=== PATIENT | female | born 1985 | race Caucasian/White ===

== ENCOUNTER 2021-04-07 11:57 | Emergency (ER) | payer OTHER, SELFPAY ==
[2021-04-07 12:11] VITALS: BP 115/60; PULSE 96; RESP 16; TEMP 37.4; O2SAT 98
--- NOTE | 2021-04-07 12:32 | ED.URI ---
HPI - URI/Sore Throat General Chief Complaint: Upper Respiratory Infection Stated Complaint: flu like sx Time Seen by Provider: 04/07/21 12:32 Source: patient, RN notes reviewed and old records reviewed Mode of arrival: ambulatory Limitations: no limitations History of Present Illness HPI Narrative: 36-year-old female presents to the [facility] with complaints of flulike symptoms. Patient stated yesterday she had 104 fever, headache, ear pain, sore throat and generalized body aches. Reports nausea and diarrhea for 3 hours last night. Patient is not Covid or flu vaccinated Patient is just wanting to be tested for influenza. Related Data Home Medications Medication Instructions Recorded Confirmed albuterol 2 mcg INHALATION PRN PRN 04/07/21 04/07/21 Allergies Allergy/AdvReac Type Severity Reaction Status Date / Time No Known Allergies Allergy Verified 04/07/21 12:37 Review of Systems Review of Systems: All systems reviewed & are unremarkable except as noted in HPI and below Constitutional: Constitutional: Reports as per HPI, Reports chills and Reports fever(s) Eyes: Eyes: Reports no additional eye complaints ENT: Reports as per HPI, Reports nasal congestion and Reports sore throat Comments: Ear pain Cardiovascular: Cardiovascular: Reports no additional cardiovascular complaints, Denies chest pain and Denies radiating jaw, neck or arm pain Respiratory: Respiratory: Reports no additional respiratory complaints, Denies cough, Denies dyspnea and Denies wheezing Gastrointestinal: Gastrointestinal: Reports no additional gastrointestinal complaints Musculoskeletal: Musculoskeletal: Reports as per HPI and Reports myalgias Integumentary/Breasts: Skin/Breast: Reports system reviewed and no additional complaints, except as docu Neurologic: Reports as per HPI and Reports headache(s) Psychiatric: Psychiatric: Reports no additional psychiatric complaints Allergic/Immunologic: Allergic/Immunologic: Reports no additional allergic/immunologic complaints PMFSH Past Medical History Medical History Viral infection Comments At the time of my signature, I reviewed and agree with the nursing past medical, surgical, social, and family history. There is no relevant family history pertinent to the patient complaint. Exam Const: General: healthy appearing, no acute distress and alert Nutritional Appearance: well nourished and obese Orientation/consciousness: patient oriented x3 Limitations: no limitations HENMT: Head: normal to inspection Ears: external ears normal, TM's normal bilaterally and EAC's normal Mouth: Yes Normal oral and palatal mucosa present Throat: posterior oropharynx normal Eyes: Conjunctivae: conjunctivae normal Pupils: Equal, round and reactive pupils present Neck: Neck: normal visual inspection, no lymphadenopathy and no meningeal signs Chest: Chest palpation & inspection: normal inspection of the chest Resp: Effort & Inspection: normal respiratory effort and no use of accessory muscles Auscultation: clear to auscultation bilaterally, no rales, no rhonchi and no wheezes Cardio: Rate: regular rate Rhythm: regular rhythm Back/Spine/Pelvis: Back: no CVA tenderness Skin: General skin exam: normal color Rashes: no rashes Wounds: no wounds Neuro: General: patient oriented x3, moves all extremities, no meningeal signs and no focal motor deficits Speech: normal speech Gait exam (Neuro): Normal gait present Extrem: General: normal to inspection Psych: Appearance: grossly normal and well kempt Mental Status: mental status grossly normal Affect: normal affect Attitude: cooperative Thought content: Yes Normal thought content present Course Course Emergency Course: Discharge instructions reviewed with patient, as well as provided in writing per nursing staff. The instructions also include specific and strict return/GO TO THE ER as well as f/u inf
== END 2021-04-07 13:10 | disposition home or self-care (01) ==
PROVIDERS: Emergency Provider Nurse Practitioner
DX: U07.1 COVID-19 (principal); J45.909 Unspecified asthma, uncomplicated
CPT/HCPCS: 87804; 99203; G0463

== ENCOUNTER → 2021-04-09 01:37 | Outpatient (CLI) | payer MEDICAID, SELFPAY ==
[2021-04-09 20:33] LABS: SARS-CoV-2 RNA PCR Positive
== END ==
PROVIDERS: Visit Provider Nurse Practitioner
DX: U07.1 COVID-19 (principal); R50.9 Fever, unspecified
CPT/HCPCS: C9803; U0003; U0005

== ENCOUNTER 2023-02-22 10:30 | Emergency (ER) | payer MEDICAID, SELFPAY ==
--- NOTE | 2023-02-22 10:32 | ED.URI ---
HPI - URI/Sore Throat General Chief Complaint: Upper Respiratory Infection Stated Complaint: SOB Time Seen by Provider: 02/22/23 10:46 Source: patient, RN notes reviewed and old records reviewed Mode of arrival: ambulatory Limitations: no limitations History of Present Illness HPI Narrative: 38-year-old male presents to the [facility] with complaints of cough and shortness of breath. Patient is 3 months . Has a history of asthma Onset (ago): week(s) (3) Related Data Home Medications Medication Instructions Recorded Confirmed albuterol 90 mcg/actuation aerosol 2 mcg inhalation PRN PRN 04/07/21 02/22/23 inhaler difficulty breathing albuterol sulfate 2.5 mg/3 mL 2.5 mg inhalation DIRECTED 02/22/23 02/22/23 (0.083 %) solution for nebulization ondansetron HCl 4 mg tablet 4 mg PO DIRECTED PRN Dyspnea 02/22/23 02/22/23 Allergies Allergy/AdvReac Type Severity Reaction Status Date / Time No Known Allergies Allergy Verified 02/22/23 10:41 Review of Systems Review of Systems: All systems reviewed & are unremarkable except as noted in HPI and below Constitutional: Constitutional: Reports no additional constitutional complaints Eyes: Eyes: Reports no additional eye complaints ENT: Reports system reviewed and no additional complaints, except as documented Cardiovascular: Cardiovascular: Reports no additional cardiovascular complaints, Denies chest pain and Denies dyspnea Respiratory: Respiratory: Reports as per HPI, Denies chest congestion, Reports cough, Reports dyspnea and Reports wheezing Gastrointestinal: Gastrointestinal: Reports no additional gastrointestinal complaints, Denies abdominal pain, Denies nausea and Denies vomiting Musculoskeletal: Musculoskeletal: Reports no additional musculoskeletal complaints Integumentary/Breasts: Skin/Breast: Reports system reviewed and no additional complaints, except as docu Neurologic: Reports system reviewed and no additional complaints, except as documented Psychiatric: Psychiatric: Reports no additional psychiatric complaints Allergic/Immunologic: Allergic/Immunologic: Reports no additional allergic/immunologic complaints PMFSH Past Medical History Medical History (Updated 02/22/23 @ 11:00 by Cheyenne Price APRN) Asthma Viral infection Comments At the time of my signature, I reviewed and agree with the nursing past medical, surgical, social, and family history. There is no relevant family history pertinent to the patient complaint. Exam Const: General: cooperative, healthy appearing, comfortable, no acute distress, well developed, alert and well nourished Nutritional Appearance: well nourished Orientation/consciousness: patient oriented x3 Limitations: no limitations HENMT: Head: normal to inspection Ears: hearing grossly normal bilaterally, external ears normal, TM's normal bilaterally, EAC's normal, mastoids normal and no periauricular adenopathy Face/Nose/Sinus: Normal external nose present, Normal nares present, Normal nasal mucous membranes and turbinates present, normal facial exam and face symmetric Face and sinus: normal facial exam and face symmetric Mouth: Yes Normal oral and palatal mucosa present, Yes lip normal and Yes moist mucous membranes Throat: posterior oropharynx normal, tonsils normal, uvula midline and postnasal drainage Eyes: General: appearance normal, both eyes and all related structures Alignment and Position: alignment normal Periorbital: periorbital findings normal Pupils: Equal, round and reactive pupils present EOM: EOMs intact bilaterally Neck: Neck: normal visual inspection, full ROM, no lymphadenopathy and no meningeal signs Chest: Chest palpation & inspection: normal inspection of the chest Resp: Effort & Inspection: normal respiratory effort and able to speak in complete sentences Auscultation: clear to auscultation bilaterally, no crackles, no rales, no rhonchi and no wheezes Cardio: Rate: regular rat
[2023-02-22 10:43] VITALS: BP 134/75; PULSE 102; RESP 18; TEMP 36.8; O2SAT 98
== END 2023-02-22 11:00 | disposition home or self-care (01) ==
PROVIDERS: Emergency Provider Nurse Practitioner
DX: J40 Bronchitis, not specified as acute or chronic (principal); J45.909 Unspecified asthma, uncomplicated
CPT/HCPCS: 99203; G0463

== ENCOUNTER 2023-06-21 10:27 | Outpatient (RCR) | payer MEDICAID, SELFPAY ==
[2023-06-21 11:21] LABS: Hematocrit 35.6 % (37.0-47.0); Hemoglobin 11.8 g/dL (12.0-15.0)
[2023-06-21 11:55] LABS: HIV 1/2 Ab P24 Ag Result Negative (Negative)
[2023-06-23] MEDS: RHO(D) IMMUNE GLOBULIN 300 MCG/2 ML SYRINGE IM (10:23)
== END 2023-09-19 23:59 | disposition home or self-care (01) ==
LOC: ANHLAB 10:27
PROVIDERS: Visit Provider Obstetrics & Gynecology
DX: Z11.4 Encounter for screening for human immunodeficiency virus [HIV] (principal); Z29.13 Encounter for prophylactic Rho(D) immune globulin; O36.0130 Maternal care for anti-D [Rh] antibodies, third trimester, not applicable or unspecified; Z3A.00 Weeks of gestation of pregnancy not specified
CPT/HCPCS: 36415; 85014; 85018; 85461; 86703; 86850; 86900; 86901; 90384; 96372; G0432; J2790

== ENCOUNTER 2023-06-25 17:47 | Emergency (ER) | payer MEDICAID, SELFPAY ==
[2023-06-25] VITALS (7 sets, daily range): BP systolic 117–140; BP diastolic 75–85; PULSE 93–104; RESP 15–18; TEMP 36.3; O2SAT 97–100
--- NOTE | ~2023-06-25 | XR_ITS ---
EXAMINATION: XR chest 1V portable Exam Date/Time: 06/25/2023 19:35 CDT HISTORY: preeclampsia eval, 29 weeks, r/o pulm edema Comparison: None. RESULT: Lines, tubes, and devices: None. Lungs and pleura: Clear. Cardiomediastinal silhouette: Normal. Other: No acute osseous or upper abdominal finding. IMPRESSION: No acute cardiopulmonary process. Reviewed, dictated and finalized at location K.
--- NOTE | 2023-06-25 18:33 | ED.DIZZY ---
HPI - Dizziness General Chief Complaint: Dizziness Stated Complaint: 29 wks , dizzy x 2 days Time Seen by Provider: 06/25/23 18:32 Source: patient Mode of arrival: ambulatory Limitations: no limitations History of Present Illness HPI Narrative: Patient is a 38 y/o female who presents to the ED with c/o dizziness and vision changes. Patient is currently 29 weeks gestation[address] She sees Dr[address] Chappell. She reports over the last 2 days, she has been having dizziness/lightheadedness, intermittent blurry vision, nausea, headaches, SOB, discomfort in her right-sided abdomen, difficulty focusing, oliguria. She also reports having swelling in her legs over the last 1 week, increased swelling in her hands over the last 2 days. Denies fevers, shortness of breath, chest pain, slurred speech, focal weakness, vomiting, vaginal bleeding, hematuria. Patient reports a fairly unremarkable thus far. She denies history of hypertension with . She does report she recently had an elevated 1 hour glucose test and is scheduled to have 3hr GTT. Related Data Home Medications Medication Instructions Recorded Confirmed albuterol 90 mcg/actuation aerosol 2 mcg inhalation PRN PRN 04/07/21 02/22/23 inhaler difficulty breathing albuterol sulfate 2.5 mg/3 mL 2.5 mg inhalation DIRECTED 02/22/23 02/22/23 (0.083 %) solution for nebulization ondansetron HCl 4 mg tablet 4 mg PO DIRECTED PRN Dyspnea 02/22/23 02/22/23 Allergies Allergy/AdvReac Type Severity Reaction Status Date / Time No Known Allergies Allergy Verified 06/25/23 18:22 Review of Systems Review of Systems: CONSTITUTIONAL: Denies fever, chills, or sweats. ENT: Reports blurry vision. CARDIOVASCULAR: Denies chest pain. RESPIRATORY: See HPI GASTROINTESTINAL: See HPI. GENITOURINARY: See HPI. MUSCULOSKELETAL: Denies back pain, extremity pain, myalgia. NEUROLOGIC: See HPI. All systems reviewed & are unremarkable except as noted in HPI and below PMFSH Past Medical History Medical History Asthma Viral infection Exam Narrative: GENERAL: Mildly ill-appearing, obese with BMI of 32.3, non-toxic, in no acute distress. HEAD: Normocephalic, atraumatic. EYES: PERRL/EOMI, conjunctiva clear. No nystagmus. RESPIRATORY: Airway patent, respirations nonlabored. Clear to auscultation bilaterally, no rales, rhonchi, wheezing. No significant focal lung sounds. CARDIOVASCULAR: Borderline tachycardic with regular rhythm without murmurs, rubs, or gallops. ABDOMINAL: Soft, uterus gravid near diaphragm, mild discomfort throughout R sided abdomen, nondistended. Normoactive BS. MUSCULOSKELETAL: Moves all extremities. No gross deformities. Mild nonpitting edema throughout BLE, symmetric bilaterally. No calf tenderness. SKIN: Warm, dry, normal color. NEURO: A&O X3. Speech clear. Cranial nerves II-XII grossly intact. Steady gait. No ataxic movements. Sensation grossly intact. Strength 5/5 in upper and lower extremities bilaterally. No pronator drift. Equal extruding press adjuster strength bilaterally. PSYCHIATRIC: Appropriate mood and affect. Normal interaction. Course Vital Signs Vital signs: Vital Signs Temperature 97.3 F L 06/25/23 18:18 Pulse Rate 100 06/25/23 18:18 Respiratory Rate 18 06/25/23 18:18 Blood Pressure 133/85 06/25/23 18:18 Pulse Oximetry 100 06/25/23 18:18 Oxygen Delivery Room Air 06/25/23 18:18 Temperature 97.3 F L 06/25/23 18:18 Pulse Rate 96 06/25/23 20:26 Respiratory Rate 15 06/25/23 20:26 Blood Pressure 117/75 06/25/23 20:26 Pulse Oximetry 100 06/25/23 20:26 Oxygen Delivery Room Air 06/25/23 18:18 MDM - Dizziness MDM Narrative Medical decision making narrative: Patient currently 29 weeks gestation reporting multiple symptoms, headaches, blurry vision, dizziness, SOB, right-sided abdominal pain, lower extremity swelling, decreased urine output. Symptoms are
--- NOTE | 2023-06-25 18:34 | ECG_ITS ---
Measurements Intervals [place] Rate: 97 P: 50 DE: 143 QRS: 28 QRSD: 80 T: 23 QT: 321 QTc: 409 Interpretive Statements SINUS RHYTHM NORMAL ECG NO PREVIOUS ECG AVAILABLE FOR COMPARISON Electronically Signed On 06-25-2023 18:59:56 CDT by Mariano Marcelo D.O.
[2023-06-25 18:43] LABS: Glucose Point of Care 100 mg/dl (65-105)
[2023-06-25] MEDS: SODIUM CHLORIDE 0.9% IV 1,000 ML 999 ML IV CONT (19:00)
[2023-06-25] MEDS: MECLIZINE HCL 25 MG TABLET PO (19:01)
[2023-06-25 19:06] LABS: Basophils Percent Auto 0.2 % (0.2-1.2); Eosinophils Absolute Auto 0.2 K/mm3 (0-0.3); Eosinophils Percent Auto 1.7 % (0-4.4); Hematocrit 33.7 % (37.0-47.0); Hemoglobin 11.3 g/dL (12.0-15.0); Immature Granulocyte Absolute 0.09 K/mm3 (0.00-0.031); Immature Granulocyte Percent A 0.8 % (0-0.5); Lymphocytes Absolute Auto 2.17 K/mm3 (0.9-3.2); Lymphocytes Percent Auto 19.5 % (18.3-44.2); Mean Corpuscular HGB Conc 33.5 g/dl (32-36); Mean Corpuscular Hemoglobin 28.8 pg (26-34); Mean Platelet Volume 9.6 fl (7.4-10.4); Monocytes Absolute Auto 0.8 K/mm3 (0.1-0.6); Monocytes Percent Auto 7.1 % (2.6-8.5); Neutrophils Absolute Auto 7.9 K/mm3 (1.3-6.7); Neutrophils Percent Auto 70.7 % (45.5-73.1); Platelet Count Result 227 k/mm3 (150-375); Red Blood Count 3.92 M/mm3 (4.2-5.4); Red Cell Distribution Width 13.8 % (11.5-14.5); White Blood Count 11.1 K/mm3 (4.5-10.0)
--- NOTE | 2023-06-25 19:18 | PC.NURSE ---
this rn assumed care of patient. this rn took patient report from MARIAM Zamarripa.
[2023-06-25 19:20] LABS: Prothrombin Time 13.1 Seconds (11.1-14.7)
[2023-06-25 19:22] LABS: Lactate Dehydrogenase 121 U/L (120-246); Lipase 130 U/L (23-300)
[2023-06-25 19:24] LABS: Fibrinogen 510 mg/dl (215-510)
[2023-06-25 19:25] LABS: Alanine Aminotransferase 19 U/L (6-35); Albumin Level 3.8 g/dL (3.5-5.1); Alkaline Phosphatase 81 U/L (38-126); Anion Gap 5 mmol/L (8-16); Aspartate Amino Transferase 24 U/L (14-36); Bilirubin,Total 0.5 mg/dL (0.2-1.3); Blood Urea Nitrogen 5 mg/dL (7-17); Calcium 9.6 mg/dL (8.4-10.2); Carbon Dioxide 23 mmol/L (22-30); Chloride 107 mmol/L (98-107); Estimated CRCL calculation 143 ml/min; Estimated Glomerular Filt Rate > 60; Glucose 89 mg/dL (65-110); Magnesium 1.9 mg/dL (1.6-2.3); Potassium 3.9 mmol/L (3.4-5.0); Sodium 135 mmol/L (137-145)
[2023-06-25 19:37] LABS: Total Protein Urine Random 12 mg/dL
[2023-06-25] MEDS: ACETAMINOPHEN 500 MG TABLET 1000 MG PO (19:56)
[2023-06-25 20:08] LABS: Appearance Urine Cloudy (Clear); Bacteria Urine Rare /hpf; Bilirubin Urine Negative (Negative); Blood Urine Negative (Negative); Color Urine Yellow (Yellow); Glucose Urine UA Negative (Negative); Ketones Urine Negative (Negative); Leukocyte Esterase Ur Negative LEU/UL (Negative); Nitrate Urine Negative (Negative); Non Pathogenic Casts 0-2; Protein Urine Negative (Negative); RBC Urine 0-2 /hpf (0-2); Specific Grav Ur 1.013 (1.001-1.035); Squamous Epithelial Cell Urine None Seen /hpf (Few); WBC Urine 0-5 /hpf (0-3)
[2023-06-25 20:11] LABS: Add Urine Microscopic? YES
== END 2023-06-25 21:11 | disposition home or self-care (01) ==
PROVIDERS: Emergency Provider Physician Assistant
DX: O26.892 Other specified pregnancy related conditions, second trimester (principal); R42 Dizziness and giddiness; R51.9 Headache, unspecified; O99.512 Diseases of the respiratory system complicating pregnancy, second trimester; J45.909 Unspecified asthma, uncomplicated; Z3A.29 29 weeks gestation of pregnancy
CPT/HCPCS: 36415; 71045; 80053; 81050; 82948; 83615; 83690; 83735; 84156; 85025; 85384; 85610; 85730; 93005; 96360; 96361; 99283; A9270; J7030

== ENCOUNTER 2023-07-10 09:35 | Emergency (ER) | payer MEDICAID, SELFPAY ==
--- NOTE | 2023-07-10 09:43 | ED.EYEPROB ---
HPI - Eye Problem General Chief complaint: Eye Problems Stated complaint: Left Eye Irritation/Sinus Time Seen by Provider: 07/10/23 09:53 Source: patient and RN notes reviewed Mode of arrival: ambulatory Limitations: no limitations History of Present Illness HPI Narrative: 38-year-old female who is 31 weeks presents with concern for left eye redness, irritation, copious green discharge that started last night. Reports she woke up with her eye crusted shut needed a washcloth to open it. Reports she has also had more than 1 week history of sinus congestion, pain, pressure, drainage. MD chief complaint: eye redness Related Data Home Medications Medication Instructions Recorded Confirmed albuterol 90 mcg/actuation aerosol 2 mcg inhalation PRN PRN 04/07/21 07/10/23 inhaler difficulty breathing albuterol sulfate 2.5 mg/3 mL 2.5 mg inhalation DIRECTED 02/22/23 07/10/23 (0.083 %) solution for nebulization ondansetron HCl 4 mg tablet 4 mg PO DIRECTED PRN Dyspnea 02/22/23 07/10/23 Allergies Allergy/AdvReac Type Severity Reaction Status Date / Time No Known Allergies Allergy Verified 07/10/23 09:45 Review of Systems Review of Systems: CONSTITUTIONAL: Denies malaise, chills, sweats, or fever. EYES: Denies visual changes. Reports left eye redness, irritation, green discharge. ENT: Reports rhinorrhea, congestion, sinus pain. Denies otalgia or sore throat. SKIN: Denies rash or itching. NEUROLOGIC: Denies numbness, weakness, or headache. PSYCHIATRIC: Denies anxiety or depression. All systems reviewed & are unremarkable except as noted in HPI and below PMFSH Past Medical History Medical History Asthma Viral infection Comments At time of signature, agree with nursing past medical, surgical, social and family history. There is no relevant family history pertinent to the presenting complaint Exam Narrative: GENERAL: Well-appearing, well-nourished, and in no acute distress. HEAD: Normocephalic, atraumatic. EYES: PERRLA, sclera clear, and EOMI. No nystagmus. Left sclera and conjunctivae injected with green nasal discharge. Left Upper and lower eyelid mildly edematous, right unremarkable unremarkable, no periorbital edema noted ENT: Nares clear, turbinates erythematous, sinus tenderness. Mucous membranes moist. TM pearly wilson with sharp light reflex bilaterally; no tragal tenderness. NECK: Supple. CHEST: No respiratory distress. Speaks in full sentences. HEART: Regular rate and rhythm. SKIN: Warm, dry, no visible rash. NEURO: Alert and oriented x3. PSYCH: Normal mood and affect Course Course Emergency Course: Patient is aware of diagnosis, understands and agrees to treatment plan. Anticipatory guidance given. Patient agrees to follow-up as directed and is aware of reasons to seek care at the emergency department. Portions of this record may have been created with voice recognition software Level of Care: Express Care Visit Vital Signs Vital signs: Reviewed. MDM - Eye Problem MDM Narrative Medical decision making narrative: Consideration of the following conditions may be warranted for the presenting problem, they are not final diagnoses: Bacterial conjunctivitis, allergic conjunctivitis, viral conjunctivitis, foreign body, blepharitis, chalazion, hordeolum, corneal abrasion, preseptal cellulitis, orbital cellulitis. No evidence of proptosis, ophthalmoplegia, vision loss, pain with eye movement. Exam findings show no acute concerns or changes; patient is non-toxic appearing and is in no distress. Patient is appropriate for outpatient treatment and follow-up. Critical Care Time Critical Care Time Critical Care Time: No Discharge Plan Discharge Clinical Impression: Bacterial conjunctivitis, Acute bacterial sinusitis Patient Disposition: Home, Self-Care Condition: Stable Instructions: Antibiotic Form, Sinusitis
[2023-07-10 09:46] VITALS: BP 106/67; PULSE 101; RESP 16; TEMP 36.4; O2SAT 98
[2023-07-10 09:47] VITALS: BP 106/67; PULSE 101; RESP 16; TEMP 36.4; O2SAT 98
== END 2023-07-10 10:05 | disposition home or self-care (01) ==
PROVIDERS: Emergency Provider Nurse Practitioner; PCP Obstetrics & Gynecology
DX: O99.891 Other specified diseases and conditions complicating pregnancy (principal); H10.9 Unspecified conjunctivitis; O99.513 Diseases of the respiratory system complicating pregnancy, third trimester; J01.90 Acute sinusitis, unspecified; Z3A.31 31 weeks gestation of pregnancy; J45.909 Unspecified asthma, uncomplicated
CPT/HCPCS: 99213; G0463

== ENCOUNTER 2023-08-10 21:07 | Observation (INO) | payer MEDICAID, SELFPAY ==
[2023-08-10] VITALS (12 sets, daily range): BP systolic 120–142; BP diastolic 69–88; PULSE 88–95; TEMP 36.9; BMI 34.9
--- NOTE | 2023-08-10 22:03 | OBADM ---
This patient, Lorenza Ballard, admitted to the OB room OB Post 117 for observation. Patient/family oriented to hospital policies and general routines including ID bracelet, bed and alarms, visiting hours, pain management, procedures, bathroom and other care routines, personal items, smoking policy, room service/diet, and visiting hours. Patient/Family are encouraged to report perceived risks to care and to ask questions if they do not understand what they are told or what they should do.
[2023-08-10 22:05] LABS: Basophils Percent Auto 0.2 % (0.2-1.2); Eosinophils Absolute Auto 0.2 K/mm3 (0-0.3); Eosinophils Percent Auto 1.5 % (0-4.4); Hematocrit 33.4 % (37.0-47.0); Hemoglobin 11.3 g/dL (12.0-15.0); Immature Granulocyte Absolute 0.05 K/mm3 (0.00-0.031); Immature Granulocyte Percent A 0.5 % (0-0.5); Lymphocytes Absolute Auto 1.96 K/mm3 (0.9-3.2); Lymphocytes Percent Auto 19.2 % (18.3-44.2); Mean Corpuscular HGB Conc 33.8 g/dl (32-36); Mean Corpuscular Hemoglobin 29.6 pg (26-34); Mean Corpuscular Volume 87.4 fl (80-100); Mean Platelet Volume 9.6 fl (7.4-10.4); Monocytes Absolute Auto 0.6 K/mm3 (0.1-0.6); Monocytes Percent Auto 6.2 % (2.6-8.5); Neutrophils Absolute Auto 7.4 K/mm3 (1.3-6.7); Neutrophils Percent Auto 72.4 % (45.5-73.1); Platelet Count Result 216 k/mm3 (150-375); Red Blood Count 3.82 M/mm3 (4.2-5.4); Red Cell Distribution Width 14.7 % (11.5-14.5); White Blood Count 10.2 K/mm3 (4.5-10.0)
[2023-08-10 22:07] LABS: Appearance Urine Clear (Clear); Bilirubin Urine Negative (Negative); Blood Urine Negative (Negative); Color Urine Yellow (Yellow); Glucose Urine UA Negative (Negative); Ketones Urine Negative (Negative); Leukocyte Esterase Ur Negative LEU/UL (Negative); Nitrate Urine Negative (Negative); Protein Urine Negative (Negative); Specific Grav Ur 1.008 (1.001-1.035)
[2023-08-10 22:12] LABS: Total Protein Urine Random 16 mg/dL
[2023-08-10 22:13] LABS: Add Urine Microscopic? NO
[2023-08-10 22:17] LABS: Alanine Aminotransferase 17 U/L (6-35); Albumin Level 3.6 g/dL (3.5-5.1); Alkaline Phosphatase 127 U/L (38-126); Anion Gap 6 mmol/L (4-12); Aspartate Amino Transferase 25 U/L (14-36); Bilirubin,Total 0.5 mg/dL (0.2-1.3); Blood Urea Nitrogen 3 mg/dL (7-17); Calcium 9.5 mg/dL (8.4-10.2); Carbon Dioxide 21 mmol/L (22-30); Chloride 108 mmol/L (98-107); Estimated CRCL calculation 122 ml/min; Estimated Glomerular Filt Rate > 60; Glucose 104 mg/dL (65-110); Potassium 3.7 mmol/L (3.4-5.0); Sodium 135 mmol/L (137-145); Uric Acid 3.6 mg/dL (2.5-7.5)
[2023-08-10] MEDS: ACETAMINOPHEN 500 MG TABLET 1000 MG PO (22:38)
--- NOTE | 2023-08-11 13:44 | P.PNOB_ITS ---
OB - Triage/Final Diagnosis Visit Information Date of evaluation: 08/10/23 Reason for evaluation: other (elevated blood pressure) Comments/Additional reasons for admission: I have assessed the risk for this patient, Lorenza Ballard, and determined that she would benefit from observation care. Evaluation Laboratory results: Laboratory Tests 08/10/23 08/10/23 21:50 21:51 WBC 10.2 H RBC 3.82 L Hgb 11.3 L Hct 33.4 L MCV 87.4 MCH 29.6 MCHC 33.8 RDW 14.7 H Plt Count 216 MPV 9.6 Immature Gran % (Auto) 0.5 Neut % (Auto) 72.4 Lymph % (Auto) 19.2 [place] % (Auto) 6.2 Eos % (Auto) 1.5 Baso % (Auto) 0.2 Lymph # (Auto) 1.96 [place] # (Auto) 0.6 Eos # (Auto) 0.2 Baso # (Auto) 0.0 Abs Immat Gran (auto) 0.05 H Absolute Neuts (auto) 7.4 H Absolute Nucleated RBC 0.000 Nucleated RBC % 0.0 Sodium 135 L Potassium 3.7 Chloride 108 H Carbon Dioxide 21 L Anion Gap 6 BUN 3 L Creatinine 0.50 L Estim Creat Clear Calc 122 Estimated GFR > 60 Glucose 104 Uric Acid 3.6 Calcium 9.5 Total Bilirubin 0.5 AST 25 ALT 17 Alkaline Phosphatase 127 H Total Protein 6.0 L Albumin 3.6 Urine Color Yellow Urine Appearance Clear Urine pH 8.0 Ur Specific [place] 1.008 Urine Protein Negative Urine Glucose (UA) Negative Urine Ketones Negative Ur Blood (Man) Negative Urine Nitrate Negative Urine Bilirubin Negative Urine Urobilinogen 1.0 Leukocyte Esterase Rfl Negative U Random Total Protein 16 Urine Creatinine 32.0 Protein/Creat Ratio 2 0.50 H Vital signs: Vital Signs - 24 hr 08/10/23 21:24 08/10/23 21:31 08/10/23 21:45 Temperature Pulse Rate 94 91 94 Blood Pressure 142/88 H 139/82 135/85 Oxygen Delivery 08/10/23 22:00 08/10/23 22:15 08/10/23 22:30 Temperature Pulse Rate 89 95 89 Blood Pressure 134/82 132/77 134/85 Oxygen Delivery 08/10/23 22:45 08/10/23 23:00 08/10/23 23:15 Temperature Pulse Rate 89 92 90 Blood Pressure 133/80 132/69 128/79 Oxygen Delivery 08/10/23 23:30 08/10/23 23:45 08/10/23 22:03 Temperature Pulse Rate 89 88 Blood Pressure 120/84 120/73 Oxygen Delivery Room Air 08/10/23 21:23 Temperature 36.9 C Pulse Rate Blood Pressure Oxygen Delivery
== END 2023-08-10 23:53 ==
PROVIDERS: Advanced Practice Midwife; Admitting Provider Obstetrics & Gynecology; Visit Provider Obstetrics & Gynecology
DX: O26.899 Other specified pregnancy related conditions, unspecified trimester (principal); R03.0 Elevated blood-pressure reading, without diagnosis of hypertension
CPT/HCPCS: 36415; 80053; 81003; 82570; 84156; 84550; 85025; A9270; G0378; G0379

== ENCOUNTER 2023-08-12 10:48 | Outpatient (RCR) | payer MEDICAID, SELFPAY ==
--- NOTE | 2023-08-12 11:43 | OPREHPOC ---
Outpatient Therapy Plan of Care This is a Multidisciplinary Plan of Care that may contain components documented by all disciplines (PT, OT, and ST.) PT Problem 1 PT Problem #1 Knowledge Deficit PT Goal 1 Goal 1. Patient will perform independent HEP 2. Patient will don/doff support belt independently Target Visit 2 PT Problem 2 PT Problem #2 Pain PT Goal 1 Goal 1. Patient will report pain no higher than 4/10 with ADLs Target Visit 4 PT Problem 3 PT Problem #3 Impaired Functional ADLs PT Goal 1 Goal 1. Patient will be able to don/doff pants independently Target Visit 4
--- NOTE | 2023-08-12 11:43 | PTOPEVAL1 ---
Assessment and note entered by Karma George DPT Evaluation Information Assessment Status Evaluation Subjective Information Pt reports a lot of anterior pelvic pain and difficulty lifting her legs up like while laying down. Also notices pain with walking after sitting for awhile. Highest 8/10 and lowest 0/10. Some numbness in her left leg and getting swelling in both, L is worse. Pt is 36 weeks . Pain started about 2 months ago and worsening. Not able to do her normal cooking or cleaning and gets assistance to don/doff pants. Assistance to get out of bed as well. 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 Pt has been 2 other times, last 12 years ago. Both vaginal deliveries. Also reports current pain with intercourse. Reported Pain Level Pain Score 4: Self Report Assessment PT Clinical Summary The patient is presenting to skilled therapy at 36 weeks with anterior pelvic pain. She presents with decreased hip strength and pain with palpation of pubic symphysis which are contributing to her difficulty with most activities including dressing. She will highly benefit from therapy to reduce pain and improve function as her progresses. Plan of Care Interventions Gait Training,Hot Pack/Cold Pack,Manual Therapy, Neuro Re-education,Patient/Caregiver Education, Therapeutic Activities,Therapeutic Exercise PT Services Indicated Yes Treatment Frequency and 1 time a week for 4 visits Duration These treatments will address the objective and functional deficits as defined above. The patient will be advanced safely and appropriately in order for the patient to progress towards his/her prior level of function. Additional exercises will be introduced and as well as a comprehensive home exercise program upon discharge, if needed, ?to ensure carryover of functional gains achieved in the clinic. This treatment plan has been reviewed and agreement upon by the patient.
--- NOTE | 2023-08-18 15:31 | PCPTNOTE ---
Patient did not show up for appointment on 08/18/23.
--- NOTE | 2023-09-08 13:29 | PTOPDC ---
Assessment and note entered by Karma George DPT Evaluation Information Assessment Status Discharge - Pt Not Present Subjective Information - Assessment PT Clinical Summary The patient has not been seen in therapy since 08/11 and has likely delivered her baby. She will be discharged this date. Plan of Care PT Services Indicated No
== END 2023-09-08 14:59 | disposition home or self-care (01) ==
LOC: ANHPT 10:48
PROVIDERS: Visit Provider Obstetrics & Gynecology
DX: R10.2 Pelvic and perineal pain (principal)
CPT/HCPCS: 97110; 97140; 97161

== ENCOUNTER 2023-08-17 16:33 | Inpatient (IN) | payer MEDICAID, SELFPAY ==
[2023-08-17] VITALS (20 sets, daily range): BP systolic 125–166; BP diastolic 73–97; PULSE 88–112; TEMP 36.4; BMI 34.9
--- NOTE | 2023-08-17 17:38 | LDADM ---
This patient, Lorenza Ballard, was admitted to Labor/Delivery/Recovery 104 on 08/17/23 at 16:33. Plans for labor, pain management and were discussed with patient. Patient/family oriented to hospital policies and general routines including ID bracelet, bed and alarms, visiting hours, pain management, procedures, bathroom and other care routines, personal items, smoking policy, room service/diet and guest tray routines, infant security routines, and visiting hours. Patient/Family are encouraged to report perceived risks to care and to ask questions if they do not understand what they are told or what they should do. See OBIX for further documentation.
[2023-08-17 17:39] LABS: Basophils Percent Auto 0.1 % (0.2-1.2); Eosinophils Absolute Auto 0.1 K/mm3 (0-0.3); Eosinophils Percent Auto 0.6 % (0-4.4); Hematocrit 36.7 % (37.0-47.0); Hemoglobin 12.5 g/dL (12.0-15.0); Immature Granulocyte Absolute 0.06 K/mm3 (0.00-0.031); Immature Granulocyte Percent A 0.5 % (0-0.5); Lymphocytes Absolute Auto 2.07 K/mm3 (0.9-3.2); Lymphocytes Percent Auto 16.8 % (18.3-44.2); Mean Corpuscular HGB Conc 34.1 g/dl (32-36); Mean Corpuscular Hemoglobin 29.8 pg (26-34); Mean Corpuscular Volume 87.4 fl (80-100); Monocytes Absolute Auto 0.8 K/mm3 (0.1-0.6); Monocytes Percent Auto 6.1 % (2.6-8.5); Neutrophils Absolute Auto 9.3 K/mm3 (1.3-6.7); Neutrophils Percent Auto 75.9 % (45.5-73.1); Platelet Count Result 239 k/mm3 (150-375); Red Cell Distribution Width 14.7 % (11.5-14.5); White Blood Count 12.3 K/mm3 (4.5-10.0)
--- NOTE | 2023-08-17 17:47 | WPDOBADMIT ---
Obstetrics - Admit Note Admission Note: record reviewed. No pertinent additions to the history and/or any subsequent changes in the physical findings that are not consistent with the expected course of the were found. Additions to the history and/or subsequent changes in the physical findings follow. IOL for GHTN, co-managing with Dr. Perez, labs pending, has mild mckenna, bp's not currently severe range, continue to monitor. previous hx hemorrhage
[2023-08-17 17:48] LABS: Alanine Aminotransferase 22 U/L (6-35); Albumin Level 4.1 g/dL (3.5-5.1); Alkaline Phosphatase 153 U/L (38-126); Anion Gap 11 mmol/L (4-12); Aspartate Amino Transferase 25 U/L (14-36); Bilirubin,Total 0.6 mg/dL (0.2-1.3); Blood Urea Nitrogen 7 mg/dL (7-17); Calcium 10.1 mg/dL (8.4-10.2); Carbon Dioxide 17 mmol/L (22-30); Chloride 107 mmol/L (98-107); Estimated CRCL calculation 149 ml/min; Estimated Glomerular Filt Rate > 60; Glucose 105 mg/dL (65-110); Potassium 3.6 mmol/L (3.4-5.0); Sodium 135 mmol/L (137-145); Uric Acid 3.9 mg/dL (2.5-7.5)
[2023-08-17] MEDS: miSOPROStol 25 MCG TABLET 50 MCG BY MOUTH ×2 (17:50→21:55)
[2023-08-17 18:21] LABS: Creatinine Urine 132.4 mg/dL
[2023-08-17 18:24] LABS: Appearance Urine Clear (Clear); Bacteria Urine None Seen /hpf; Bilirubin Urine Negative (Negative); Blood Urine Negative (Negative); Color Urine Yellow (Yellow); Glucose Urine UA Trace mg/dL (Negative); Ketones Urine 1+ mg/dL (Negative); Leukocyte Esterase Ur Negative LEU/UL (Negative); Need Manual Microscopic Reviewed; Nitrate Urine Negative (Negative); Non Pathogenic Casts 0-2; Protein Urine Trace mg/dL (Negative); RBC Urine 0-2 /hpf (0-2); Specific Grav Ur 1.026 (1.001-1.035); Squamous Epithelial Cell Urine Occasional /hpf (Few); WBC Urine 0-5 /hpf (0-3); pH Urine 5.5 (5.0-9.0)
[2023-08-17 18:26] LABS: Add Urine Microscopic? YES
[2023-08-17 18:32] LABS: Total Protein Urine Random < 5 mg/dL; Ur Ttl Prot Creatinine Ratio 0.04 mg/mg (0-0.20)
[2023-08-17] MEDS: ACETAMINOPHEN 500 MG TABLET 1000 MG PO (22:10)
[2023-08-18] VITALS (127 sets, daily range): BP systolic 98–151; BP diastolic 58–102; PULSE 27–227; RESP 16–18; TEMP 36.6–36.8; O2SAT 85–100
[2023-08-18] MEDS: miSOPROStol 25 MCG TABLET 50 MCG BY MOUTH (02:19)
[2023-08-18] MEDS: LACTATED RINGERS 1,000 ML 125 ML IV CONT ×2 (06:32→07:30)
[2023-08-18] MEDS: OXYTOCIN 30 UNITS/NS 500 ML 30 UNITS/500 ML BAG IV CONT (06:36)
--- NOTE | 2023-08-18 08:07 | PM.OBPNLAB ---
Pain Control Date/time seen: 08/18/23 08:07 Comments: SVE 2/60/-2 AROM large amount of clear odorless fluid, IUPC placed, anticipate vaginal delivery
[2023-08-18] MEDS: FAMOTIDINE 20 MG/2 ML VIAL IV PUSH (08:42)
--- NOTE | 2023-08-18 10:44 | PM.OBPRVD ---
OB - Vaginal Delivery Note Procedure Delivery date: 08/18/23 Events: Gestational Hypertension Intrapartal Events: Decelerations Induction method: AROM, Per Misoprostol Protocol and Per Pitocin Protocol Delivery monitor: External FHT and Internal Uterine Route of delivery: Episiotomy description: None Laceration Description: None Specimen: No Quantitative Blood Loss (ml): 200 Anesthesia type: Epidural Disposition: Floor Complications: No immediate complications Baby Date of : 08/18/23 Time of : 10:35 Weeks of gestation at delivery: 37 Infant gender: Female presentation: vertex position: Left Occiput Anterior Placenta delivery description: Spontaneous Cord Vessel Description: 3 Vessels score one minute: 8 score five minutes: 9
[2023-08-18] MEDS: OXYTOCIN 30 UNITS/NS 500 ML 30 UNITS/500 ML BAG 125 UNITS IV CONT (11:08)
[2023-08-18 13:20] LABS: Rapid Plasma Reagin Non-Reactive (NonReactive)
--- NOTE | 2023-08-18 13:40 | OBPPTRN ---
Patient transferred to post room #284 via wheelchair. Support person present. Oriented to unit, room, information board, rooming in, admission packet and security measures. Patient verbalizes understanding.
[2023-08-18] MEDS: ONDANSETRON INJ 4 MG/2 ML VIAL IV PUSH ×2 (14:03→20:10)
[2023-08-18] MEDS: IBUPROFEN 600 MG TABLET PO ×2 (14:03→20:10)
[2023-08-19 03:40] VITALS: BP 134/86; PULSE 75
[2023-08-19] MEDS: IBUPROFEN 600 MG TABLET PO (03:40)
[2023-08-19 04:27] LABS: Hematocrit 35.4 % (37.0-47.0); Hemoglobin 11.9 g/dL (12.0-15.0)
[2023-08-19] MEDS: MULTIVIT/MIN/PREN/FOL AC/IRON TABLET 1 TAB PO (07:38)
[2023-08-19] MEDS: PANTOPRAZOLE 40 MG TABLET PO (07:38)
[2023-08-19] MEDS: DOCUSATE SODIUM 100 MG CAPSULE PO (07:38)
[2023-08-19 07:49] VITALS: BP 109/71; PULSE 94; RESP 16; TEMP 36.6; O2SAT 98
--- NOTE | 2023-08-19 07:55 | PM.OBPNVD ---
OB - PN: Subj Subjective Date/time seen: 08/19/23 07:55 Interval history: PP day 1 pain at epidural site, c/o contraction pain with voiding without difficulty, flatus present OB - PN: Obj Data Labs 08/19/23 03:39 08/17/23 17:12 Labs: Laboratory Results - last 24 hr 08/17/23 08/19/23 17:12 03:39 Hgb 11.9 L Hct 35.4 L RPR Non-reactive Blood Type O Negative Antibody Screen TNP Baby's Blood Type O pos Baby's KEVAN Positive OB - PN A/P Plan day: 1 Plan: routine care Time Spent With Patient Time: Total time spent is greater than 50% in coordination of care (as documented) at patient's floor/unit and/or counseling patient: Review of Systems Review of Systems: All systems reviewed & are unremarkable except as noted in HPI and below Exam Const: General: cooperative and healthy appearing Cardio: Rate: regular rate Skin: General skin exam: normal color Extrem: Right lower extremity: normal to inspection Left lower extremity: normal to inspection Psych: Appearance: grossly normal
[2023-08-19] MEDS: ACETAMINOPHEN 325 MG TABLET 650 MG PO (08:00)
--- NOTE | 2023-08-19 09:54 | WPDANLDPN2 ---
Anes-Prog Note L&D Date/Time: 08/19/23 09:54 Comfortable throughout: labor and delivery Neuraxial method: epidural Epidural/Spinal procedure site: clean & non-tender Neuro status: Neuro function grossly intact. Cardiovascular status: normal Respiratory status: normal Airway patency: baseline Mental status: baseline Vital Signs: Last Vital Signs Temp 36.6 C 08/19/23 07:49 Pulse 94 08/19/23 07:49 Resp 16 08/19/23 07:49 BP 109/71 08/19/23 07:49 Pulse Ox 98 08/19/23 07:49 O2 Del Method Room Air 08/19/23 07:49 Pain score (VAS): 0/0 I/O: Intake & Output 08/18/23 08/19/23 08/19/23 23:59 07:59 15:59 Intake Total 991 600 Output Total 1800 1500 Balance -809 -900 Post-procedural complaints: none Patient feedback: Patient satisfied with anesthetic care.
[2023-08-19 11:53] VITALS: BP 141/88; PULSE 109; RESP 18; TEMP 37.2; O2SAT 98
[2023-08-19] MEDS: RHO(D) IMMUNE GLOBULIN 300 MCG/2 ML SYRINGE IM (15:37)
[2023-08-22 08:37] VITALS: BP 135/90; PULSE 83; RESP 18; TEMP 36.8; O2SAT 100
--- NOTE | 2023-08-23 15:44 | PM.OBDSVD ---
DS: Admitting Diagnosis Discharge Date 08/19/23 Admitting Diagnosis IOL OB - DS: Summary OB Procedures : None OB Procedures Intrapartum: Spontaneous Vag Delivery OB Procedures: : None Peripartum Data Laceration Description: None Episiotomy description: None Time Spent with Patient Time attestation: Total time spent providing and/or coordinating discharge services: DS: Data Data Completed and Pending Labs on day of discharge: Labs from last 24 hours 08/19/23 03:39 Antibody Screen TNP Discharge Plan Discharge Attending physician on discharge: Dallin Chappell Consulting providers: Mandi Dolan Discharging Clinician: Cathleen Ozuna Patient Disposition: Home, Self-Care Activity: pelvic rest Diet: regular Discharge Instructions: Education: Mom and Baby Guide Given to: Mother Follow-Up: Call your delivering provider's office for an appointment to be seen in: 1 Week Mom and baby should come to the [facility] for the follow-up appointment. Appointment Date/Time: August 22, 2023 at 8:00 am What to expect at your follow-up visit: Blood Pressure Check Physical Assessment Call [phone] if you are unable to keep your appointment time. BREAST CARE: * Wear a snug supportive bra. * For engorgement discomfort: Breast Feeding: * Apply warm moist washcloths * Express milk as needed to relieve engorgement * Wear loose clothing Bottle Feeding: * May apply ice packs * For sore nipples: * Identify correct latch-on * Apply warm moist washcloths before and after nursing * Air dry nipples after nursing * May apply Lansinoh cream to nipples PERINEAL CARE: * Until bleeding stops, use your dewey bottle after urinating * Change your pad frequently throughout the day * You may take sitz baths several times a day (fill your bathtub with warm water and soak for 20 minutes.) Do NOT bathe in the water * No tub baths until seen by your physician - You may shower ACTIVITY: * Rest as much as possible. * Do not exercise or lift anything heavier than your baby (such as laundry or other children.) * Avoid stairs or driving as much as possible. * Do not put anything into the vagina. No douching, tampons, or sexual activity until seen by physician. NOTIFY PHYSICIAN IF YOU HAVE ANY QUESTIONS OR IF ANY OF THE FOLLOWING SYMPTOMS OCCUR: * If your episiotomy or incision becomes red, swollen, or more painful than what you have experienced in the hospital. * If your vaginal bleeding becomes foul smelling. * If your vaginal bleeding becomes more heavy than a period or if your bleeding changes from pink to bright red. However, you may pass an occasional walnut-sized clot once or twice for the first week . * If you experience a sharp, shooting pain in you calves. * If you discover a hard, reddened area on your breast or if you experience flu-like symptoms. DIET: * Eat regular, well-balanced meals. * Drink plenty of fluids daily. If , drink to thirst. Patient Instructions: Antibiotic Form Stand Alone Forms: General Discharge Information Follow-up/Referrals: Cathleen Ozuna CNM [Certified Nurse Mechanical Project Engineer] - 4 Weeks Discharge Medications: New ibuprofen 600 mg Tablet 600 mg PO Q6H PRN (Reason: Cramping) Qty: 30 0RF Continued albuterol 90 mcg/actuation Aerosol 2 mcg INHALATION PRN PRN (Reason: difficulty breathing) albuterol sulfate 2.5 mg /3 mL (0.083 %) solution for nebulization 2.5 mg inhalation DIRECTED ondansetron HCl 4 mg tablet 4 mg PO DIRECTED PRN (Reason: Nausea) Hold Instructions: Resume on 07/15/23. Do not take while taking z-trina quetiapine 200 mg tablet 200 mg PO DAILY Discontinued omeprazole magnesium [Prilosec OTC] 20 mg Tablet,Delayed Release (Dr/Ec) 20 mg PO DAILY Date of admission: 08/17/23 16:33 Primary C
== END 2023-08-19 15:45 | disposition home or self-care (01) | DRG 560 ==
LOC: ANHLDR 16:38 → ANHOB2 08-18 14:14
PROVIDERS: Admitting Provider Advanced Practice Midwife; Visit Provider Obstetrics & Gynecology
DX: O13.4 Gestational [pregnancy-induced] hypertension without significant proteinuria, complicating childbirth (principal); Z37.0 Single live birth; Z3A.37 37 weeks gestation of pregnancy; O36.8330 Maternal care for abnormalities of the fetal heart rate or rhythm, third trimester, not applicable or unspecified
CPT/HCPCS: 36415; 80053; 81001; 82570; 84156; 84550; 85014; 85018; 85025; 85461; 86592; 86850; 86880; 86900; 86901; 90384; A9270; J2405; J2590; J2790; J2795; J7120

== ENCOUNTER 2023-12-15 16:23 | Emergency (ER) | payer MEDICAID, SELFPAY ==
[2023-12-15 16:33] VITALS: BP 129/76; PULSE 92; RESP 20; TEMP 36.8; O2SAT 98
[2023-12-15 17:16] LABS: EDSTREPNEGPOS1 Negative
--- NOTE | 2023-12-15 17:18 | ED.URI ---
HPI - URI/Sore Throat General Chief Complaint: Upper Respiratory Infection Stated Complaint: Sore throat Time Seen by Provider: 12/15/23 17:19 Source: patient, RN notes reviewed and old records reviewed Mode of arrival: ambulatory Limitations: no limitations History of Present Illness HPI Narrative: 38-year-old female past medical history of asthma presents to clinic today with 2 days of sinus congestion, pressure, sore throat, and bilateral ear pain. Patient reports chills but denies fever. Patient reports coughing up brown mucus in the morning. Denies having to use albuterol inhaler. Related Data Home Medications Medication Instructions Recorded Confirmed albuterol 90 mcg/actuation aerosol 2 mcg inhalation PRN PRN 04/07/21 12/15/23 inhaler difficulty breathing albuterol sulfate 2.5 mg/3 mL 2.5 mg inhalation DIRECTED 02/22/23 12/15/23 (0.083 %) solution for nebulization quetiapine 200 mg tablet 200 mg PO DAILY 08/17/23 12/15/23 Allergies Allergy/AdvReac Type Severity Reaction Status Date / Time No Known Allergies Allergy Verified 12/15/23 16:24 Review of Systems Review of Systems: All systems reviewed & are unremarkable except as noted in HPI and below Constitutional: Constitutional: Reports no additional constitutional complaints Eyes: Eyes: Reports no additional eye complaints ENT: Reports as per HPI, Reports nasal congestion, Reports nasal discharge, Reports sinus pressure and Reports sore throat Cardiovascular: Cardiovascular: Reports no additional cardiovascular complaints, Denies chest pain and Denies dyspnea Respiratory: Respiratory: Reports as per HPI, Denies chest congestion, Reports cough and Denies dyspnea Gastrointestinal: Gastrointestinal: Reports no additional gastrointestinal complaints, Denies abdominal pain, Denies nausea and Denies vomiting Musculoskeletal: Musculoskeletal: Reports no additional musculoskeletal complaints Integumentary/Breasts: Skin/Breast: Reports system reviewed and no additional complaints, except as docu Neurologic: Reports system reviewed and no additional complaints, except as documented Psychiatric: Psychiatric: Reports no additional psychiatric complaints Allergic/Immunologic: Allergic/Immunologic: Reports no additional allergic/immunologic complaints PMFSH Past Medical History Medical History Asthma Viral infection Family History Family History Other Unknown family medical history Social History Social History Smoking status: Former smoker Tobacco type: cigarettes Substance use: never Do You Feel Safe in your Home?: Yes Lack of Transportation: No Lack of Food: Never True Current Housing: I Have Housing Concerned About Future Housing: No Difficulty Paying Gas/Electric Bills: No Difficulty Paying for Meds: No Currently Unemployed: No Education: Don't Know Difficulty w/ Childcare or Family Care: No Spiritual care concerns: No Comments At the time of my signature, I reviewed and agree with the nursing past medical, surgical, social, and family history. There is no relevant family history pertinent to the patient complaint. Exam Const: General: cooperative, healthy appearing, comfortable, no acute distress, well developed, alert and well nourished Nutritional Appearance: well nourished Orientation/consciousness: patient oriented x3 Limitations: no limitations HENMT: Head: normal to inspection Ears: hearing grossly normal bilaterally, external ears normal, TM's normal bilaterally, EAC's normal, mastoids normal and no periauricular adenopathy Face/Nose/Sinus: Normal external nose present, Normal nares present, Normal nasal mucous membranes and turbinates present, Nasal discharge present clear bilateral, normal facial exam and face symmetric Face and sinus
[2023-12-15 17:21] LABS: EDINFLUASCREEN Negative; EDINFLUBSCREEN Negative
== END 2023-12-15 17:55 | disposition home or self-care (01) ==
PROVIDERS: Emergency Provider Nurse Practitioner
DX: J06.9 Acute upper respiratory infection, unspecified (principal); R09.82 Postnasal drip; Z20.822 Contact with and (suspected) exposure to COVID-19; Z87.891 Personal history of nicotine dependence; J45.909 Unspecified asthma, uncomplicated
CPT/HCPCS: 87081; 87426; 87804; 87880; 99213; G0463

== ENCOUNTER 2024-08-06 12:15 | Outpatient (RCR) | payer MEDICAID, SELFPAY ==
[2024-08-08] MEDS: RHO(D) IMMUNE GLOBULIN 300 MCG/2 ML SYRINGE IM (18:30)
== END 2024-11-04 23:59 | disposition home or self-care (01) ==
LOC: ANHLAB 12:15
PROVIDERS: Visit Provider Obstetrics & Gynecology
DX: Z36.89 Encounter for other specified antenatal screening (principal); O36.0130 Maternal care for anti-D [Rh] antibodies, third trimester, not applicable or unspecified
CPT/HCPCS: 36415; 85461; 86850; 86900; 86901; 90384; 96372; J2790

== ENCOUNTER 2024-10-01 22:12 | Outpatient (CLI) | payer MEDICAID, SELFPAY ==
[2024-10-01 22:45] VITALS: BP 130/88; PULSE 97
[2024-10-01 22:51] LABS: Basophils Percent Auto 0.1 % (0.2-1.2); Eosinophils Absolute Auto 0.1 K/mm3 (0-0.3); Eosinophils Percent Auto 0.9 % (0-4.4); Hematocrit 33.5 % (37.0-47.0); Hemoglobin 11.2 g/dL (12.0-15.0); Immature Granulocyte Absolute 0.05 K/mm3 (0.00-0.031); Immature Granulocyte Percent A 0.5 % (0-0.5); Lymphocytes Absolute Auto 2.07 K/mm3 (0.9-3.2); Lymphocytes Percent Auto 19.6 % (18.3-44.2); Mean Corpuscular HGB Conc 33.4 g/dl (32-36); Mean Corpuscular Hemoglobin 28.5 pg (26-34); Mean Corpuscular Volume 85.2 fl (80-100); Mean Platelet Volume 10.1 fl (7.4-10.4); Monocytes Absolute Auto 0.7 K/mm3 (0.1-0.6); Monocytes Percent Auto 6.9 % (2.6-8.5); Neutrophils Absolute Auto 7.6 K/mm3 (1.3-6.7); Platelet Count Result 238 k/mm3 (150-375); Red Blood Count 3.93 M/mm3 (4.2-5.4); Red Cell Distribution Width 13.5 % (11.5-14.5); White Blood Count 10.5 K/mm3 (4.5-10.0)
[2024-10-01 22:54] LABS: Add Urine Microscopic? YES; Appearance Urine Clear (Clear); Bacteria Urine Rare /hpf; Bilirubin Urine Negative (Negative); Blood Urine Negative (Negative); Color Urine Yellow (Yellow); Glucose Urine UA Negative (Negative); Ketones Urine Trace mg/dL (Negative); Leukocyte Esterase Ur 1+ LEU/UL (Negative); Nitrate Urine Negative (Negative); Non Pathogenic Casts 0-2; Protein Urine Trace mg/dL (Negative); Specific Grav Ur 1.016 (1.001-1.035); Squamous Epithelial Cell Urine Moderate /hpf (Few)
[2024-10-01 23:01] VITALS: BP 139/78; PULSE 94
[2024-10-01 23:09] LABS: Alanine Aminotransferase 16 U/L (6-35); Albumin Level 3.6 g/dL (3.5-5.1); Alkaline Phosphatase 139 U/L (38-126); Anion Gap 7 mmol/L (4-12); Aspartate Amino Transferase 22 U/L (14-36); Bilirubin,Total 0.4 mg/dL (0.2-1.3); Blood Urea Nitrogen 6 mg/dL (7-17); Calcium 9.5 mg/dL (8.4-10.2); Carbon Dioxide 20 mmol/L (22-30); Chloride 108 mmol/L (98-107); Estimated Glomerular Filt Rate > 60; Glucose 99 mg/dL (65-110); Potassium 3.8 mmol/L (3.4-5.0); Sodium 135 mmol/L (137-145); Total Protein 6.6 g/dL (6.3-8.2); Uric Acid 3.5 mg/dL (2.5-7.5)
[2024-10-01 23:16] VITALS: BP 128/80; PULSE 94
[2024-10-01 23:22] LABS: Creatinine Urine 84.2 mg/dL; Total Protein Urine Random 11 mg/dL; Ur Ttl Prot Creatinine Ratio 0.13 mg/mg (0-0.20)
[2024-10-01 23:31] VITALS: BP 126/83; PULSE 97
[2024-10-01 23:42] VITALS: BP 126/83; PULSE 97
== END 2024-10-01 23:49 | disposition home or self-care (01) ==
LOC: ANHOBOP 22:15 → ANHOBPP 22:17
PROVIDERS: Obstetrics & Gynecology; Visit Provider Obstetrics & Gynecology
DX: R42 Dizziness and giddiness (principal)
CPT/HCPCS: 36415; 59025; 80053; 81001; 82570; 84156; 84550; 85025

== ENCOUNTER 2024-10-10 22:54 | Outpatient (CLI) | payer MEDICAID, SELFPAY ==
[2024-10-10] VITALS (7 sets, daily range): BP systolic 132–134; BP diastolic 82–83; PULSE 94–100; O2SAT 99–100; BMI 36.3
--- NOTE | 2024-10-10 22:54 | PC.NURSE ---
Pt arrives to unit with elevated blood pressures at home, headache 6 out of 10, spots in vision, and nausea.
--- OUTSIDE RECORDS SUMMARY | 2024-10-10 23:01 | XMS_ITS | Data Portability ---
Author Organization [facility] Address [address] [place] [address] Assessment No assessment recorded. Plan of Treatment Reminders Order Date Submit Date Provider Last Modified By Organization Details Last Modified Time Details Appointments None recorded. Lab pap, IG + CT/NG + reflex HPV 2013 014 [facility], [address] [place] [address], [facility] [address], [place], [address], 4 20:18:04 wet [facility] 2013 014 [facility], [address] [place] [address], [facility] [address], [place], [address], 4 20:18:04 test, urine 2013 014 [facility] Order, Internal Use Only DO Not Attach Compendium DO Not Attach Compendium, Do Not Delete/merge, [id number] 4 20:18:04 Referral None recorded. Procedures None recorded. Surgeries None recorded. Imaging None recorded. Medication Orders ibuprofen 800 mg tablet 2014 015 [id number], [address], [place], [id number], 5 11:27:58 cyclobenza lobito 10 mg tablet 2014 015 [facility] #[id number], [address], [place], [id number], 5 11:27:59 Nexplanon 68 mg subdermal implant 2013 014 [facility] #[id number], [address], [place], [id number], 4 20:18:10 albuterol sulfate 0.63 mg/3 mL solution for nebulizati on 2013 014 [facility][id number], [address], [place], [id number], 4 20:18:04 albuterol sulfate HFA 90 mcg/actuat ion aerosol inhaler 2013 014 [facility] #[id number], [address], [place], [id number], 4 20:18:04 metronidaz ole 500 mg tablet 2013 014 [facility] #[id number], [address], [place], [id number], 4 20:18:04 Patient TargetsNo targets recorded. Patient InstructionsNo instructions recorded. Reason for Referral None Reported. Results Created Date Observation Date Name Description Value Unit Range Abnormal Flag Note LastModifiedBy Organization Detail LastModifiedTime 03/21/20 14 03/21/2014 pregn linda test, urine HCG negati ve Not Available In-Office Order Internal Use Only DO Not Attach Compendium DO Not Attach Compendium, Do Not Delete/merge, [id number] 03/21/2014 11:48:56 03/21/20 14 03/21/2014 wet [facility] trichomonas exam NEGATI VE negati ve Not Available [facility] ([facility]) [address], [place], [address], 03/21/2014 12:03:22 03/21/20 14 03/21/2014 wet [place] yeast exam NEGATI VE negati ve Not Available [facility] ([facility]) [address], [place], [address], 03/21/2014 12:03:22 03/21/20 14 03/21/2014 wet mount clue cell exam CLUE CELLS SEEN. negati ve Not Available [facility] ([facility]) [address], [place], [address], 03/21/2014 12:03:22 Result Notes None recorded. Problems Name Problem SNOMED Code Status Onset Date Resolution Date Notes Provider Name and Address Organization Details Recorded Time Skin tag 263115400 Active Kadeem miranda, [place] - [facility] 5 11:27:58 Muscle strain 03297799 Active Kadeem miranda, [place] 5 11:27:58 Asthma 172002481 Active Kadeem miranda, [facility] 4 20:18:04 Bacterial vaginosis 510429437 [place] Kadeem [place]anda, [place] 4 20:18:04 Pain in pelvis 61152021 [place] Kadeem [place]anda[place] 4 20:18:04 Depressive disorder 25464884 Active Kadeem miranda, [place] 4 15:39:49 Problem Notes None recorded. Procedures Surgical History Date Name Laterality Status Provider Name and Address Organization Details Recorded Time 5 Cryosurgery Warts/Skin Tags completed Kadeem May [facility] 10/10/2014 11:27:59 4 Generic Procedure completed Kadeem May [facility] 03/21/2014 20:17:16 Imaging Results None recorded. Procedure Notes None recorded. Medical Equipment None Reported. Allergies No known drug allergies Medications Name Sig Start Date Stop Date Status Note LastModified by Organization Details LastModified Time cyclobenzapr ine 10 mg tablet Take 1 tablet 3 times a day by oral route. 2014 active Not Available Not Available Not Avai lable albuterol sulfate 0.63 mg/3 mL solution for nebulization Inhale 3 mL every day by inhalation route. active Not Available Not Available No t Available ibuprofen 800 mg tablet Take 1 tablet 3 times a day by oral route. 2014 active Not Available Not Available Not Avai lable metronidazol e 500 mg tablet take 4 tablets at one time active Not Available Not Available No t Available Ventolin HFA 90 mcg/actuatio n aerosol inhaler Inhale 2 puffs every 4 hours by inhalation route. active Not Available Not Available No t Available Nexplanon 68 mg subdermal implant Inject 1 implant by subcutaneou s route. 2013 active Not Available Not Available Not Avai lable Vitals Date Recorded Body weight Body height Body temperature Heart rate Body mass index (BMI) Systolic blood pressure Diastolic blood pressure Provider Name and Address Organization Details Last Updated DateTime 5 93287.0 67239 g 152.4 cm 98.4 [degF] 93 /min 29.4 kg/m2 120 mm[Hg] 76 mm[Hg] Dot Winters CMA [facility] 5 10:16:44 Date Recorded Body temperature Body height Body mass index (BMI) Heart rate Body weight Systolic blood pressure Diastolic blood pressure Provider Name and Address Organization Details Last Updated DateTime 4 98.3 [degF] 152.4 cm 27.5 kg/m2 64 /min 94400.5 2417 g 124 mm[Hg] 72 mm[Hg] Ruben Leung MA [facility] 4 11:01:55 Social History None recorded. Functional Status None recorded. Mental Status None recorded. Family History Nothing Reported. Medical History No medical history recorded. Gynecological HistoryNo gynecological history recorded. Obstetrics History GPAL:G 0 P 0 0 0 0 Past Encounters Encounter ID Performer Location Encounter Start Date Encounter Closed Date Diagnosis/Indication Diagnosis SNOMED-CT Code Diagnosis ICD10 Code Diagnosis Note [id number] MD Darryn Armando [facility] ([facility]) [address] [place] [address] 03/21/2014 10:15:47 03/21/2014 20:20:10 Gynecologic examination 09235314 positive for BV - treated with metronidaz ole Asthma 145237919 refille d meds Bacterial vaginosis 163599434 Pain in pelvis 67720274 will evaluate further after results are back Uses contraception 96551946 implanon insertion [id number] MD Darryn Armando [facility] ([facility]) [address] [facility] [place] [address] 10/10/2014 10:10:41 10/10/2014 11:29:01 Skin tag 866847955 Muscle strain 64107015 e xercises, ibuprofen, flexeril. Report in 2 weeks. Health Concerns Section Related Observation LastModified by Organization Detai ls LastModified Time None Recorded Concern Status LastModified by Organization Details LastModified Time None Recorded Advance Directives Directive None Recorded Payers Insurance Date Sequence Insurance Name Policy Number Policy Grullon Covered Member ID Grullon Member ID Guarantor Name 10/09/2014 1 [facility] PRIOR TO 2020 (MEDICAID REPLACEMENT - HMO) Lorenza Puri [id number] Lorenza Puri OBGyn Episode No OBEpisode recorded.
--- OUTSIDE RECORDS SUMMARY | 2024-10-10 23:01 | XMS_ITS | Clinical Summary ---
Author Organization [facility] Address [address] [place] [address] Care Team Providers Care Furniture Polisher Name Role Phone None, Physician Primary Care Provider Unavailabl e Source Comments [facility],non-owned Affiliates and Associated Physician Practices is amultiple site organization consisting of ambulatory clinics and hospital sitesin [place], [place], [place] and [place]. This disclosure is being madepursuant to the Care Everywhere program and may not contain all information available regarding this patient. Last updated 17.[employer] [facility] Allergies No known active allergies Medications * This document contains information received from the source organization and may not represent a complete record from that organization. * Be aware that medications may not be up to date on this document. Alwaysverify current medications with the patient. ondansetron (Zofran) 4 MG tablet Take 1 (one) tablet by mouth every 4 hours as needed 03/01/2023 Active albuterol (Proventil;Vent geovanni) (2.5 MG/3ML) 0.083% nebulizer solution 02/23/2023 Active Vit-Fe Fumarate-FA ( plus) 27-1 MG tablet Take 1 (one) tablet by mouth once daily 90 tablet 2 05/12/2023 Active QUEtiapine (SEROquel) 25 MG tablet Take 1 (one) tablet by mouth 3 times daily as needed (anxiety) 90 tablet 1 12/01/2023 Active QUEtiapine (SEROquel) 300 MG tabletIndicatio ns:Bipolar Mood Disorder Take 1 (one) tablet by mouth at bedtime Reasons: Manic-Depres loyda 30 tablet 1 12/26/2023 Active lithium carbonate (Eskalith) 150 MG capsuleIndicati ons:Bipolar Mood Disorder Take 1 (one) capsule by mouth daily with dinner Reasons: Manic-Depres loyda 7 capsule 01/09/2024 Active lithium CR (Lithobid) 300 MG tabletIndicatio ns:Bipolar Mood Disorder Take 1 (one) tablet by mouth daily with dinner Reasons: Manic-Depres loyda 30 tablet 2 01/16/2024 Active Active Problems Problem Noted Date Diagnosed Date Bipolar I disorder 05/23/2023 Social History Tobacco Use Types Packs/Day Years Used Date Smoking Tobacco: Never Smokeless Tobacco: Never Tobacco Cessation:Counseling Given: Not Answered Alcohol Use Standard Drinks/Week Comments Never 0 (1 standard drink = 0.6 oz pur e alcohol) AUDIT-C Answer Date Recorded Q1: How often do you have a drink containing alcohol? Never 03/11/2023 Q2: How many drinks containi ng alcohol do you have on a typical day when you are drinking? Patient does not drink Q3: How often do you have si x or more drinks on one occasion? Never 03/11/2023 PHQ-2 Answer Date Recorded Patient Health Questionnaire-2 Score 1 01/09/2024 Comments Unknown Sex and Gender Information Value Date Recorded Sex Assigned at Not on file Legal Sex Female 4:27 PM CARDIAC REHAB NURSE Gender Identity Not on file Sexual Orientation Not on file Last Filed Vital Signs Vital Sign Reading Time Taken Comments Blood Pressure 131/75 01/09/2024 10:34 AM CDT Pulse 91 01/09/2024 10:34 AM CDT Temperature 36.3 C (97.3 F) 01/09/2024 10:34 AM CDT Respiratory Rate 16 03/11/2023 5:14 PM CARDIAC REHAB NURSE Oxygen Saturation - - Inhaled Oxygen Concentration - - Weight 77.1 kg (170 lb) 01/09/2024 10:34 AM CDT Height 152.4 cm (5') 12/01/2023 1:13 PM CDT Body Mass Index 33.2 12/01/2023 1:13 PM CDT Plan of Treatment Health Maintenance Due Date Last Done Comments HEPATITIS C SCREENING 01/19/2005 DTAP/TDAP/TD VACCINES (1 - Tdap) 2006 HEPATITIS B VACCINE (1 of 3 - 19+ 3-dose series) 2006 COVID-19 VACCINE (1 2023-2 5 season) 2023 INFLUENZA VACCINE (Season Ended) 2024 PAP SMEAR 01/18/2026 01/18/2023, 01/18/2023 ZOSTER VACCINE (1 of 2) 2037 HIV SCREENING Completed 06/21/2023, 03/01/2023 HIB VACCINE Aged Out No longer eligi ble based on patient's age to complete this topic HPV VACCINE Aged Out No longer eligi ble based on patient's age to complete this topic MENINGOCOCCAL (Group B) VACCINE SHARED DECISION-MAKING Aged Out No longer eligible based on patient's age to complete this topic MENINGOCOCCAL GROUPS A/C/Y/W VACCINE Aged Out No longer eligible b ased on patient's age to complete this topic PNEUMOCOCCAL VACCINE Aged Out No long er eligible based on patient's age to complete this topic Insurance [place] Care Teams Furniture Polisher Relationship Specialty Start Date End Date None, Physician [address] [place] [address] PCP - General 03/11/23
--- OUTSIDE RECORDS SUMMARY | 2024-10-10 23:01 | XMS_ITS | Continuity of Care Document ---
Author Organization [facility] Address [address] [place] [address] Assessment No assessment recorded. Plan of Treatment Reminders Order Date Submit Date Provider Last Modified By Organization Details Last Modified Time Details Appointments OB ROUTINE 2024 03:45P Mau MARTÍNEZ MD Not available Not available Not available INDUCTION 2024 05:00A Mau MARTÍNEZ MD Not available Not available Not available Lab unlisted lab - CMP/CBC/u estefany acid 2024 025 [facility] (Lab), [address], [place], [address], 10/09/2024 16:35:35 protein:c reatinine ratio, urine 2024 025 [facility] (Lab), [address] [place], [address], 10/09/2024 16:35:35 Referral None recorded. Procedures None recorded. Surgeries None recorded. Imaging None recorded. Medication Orders None recorded. Patient TargetsNo targets recorded. Patient InstructionsNo instructions recorded. Reason for Referral None Reported. Results Created Date Observation Date Name Description Value Unit Range Abnormal Flag Note LastModifiedBy Organization Detail LastModifiedTime 04/26/1904/26/2024 US, obste tric, nucha l trans lucen cy No observ ation record ed. [facility] [address], [place], [address], 04/26/2024 18:32:55 04/26/19 25 04/26/2024 US, obste tric, nucha l trans lucen cy No observ ation record ed. [email or web address] [address], [place], [address], 04/26/2024 21:28:29 06/08/19 25 06/08/2024 US, obste tric, 2nd or 3rd trime ster No observ ation record ed. [facility] [address], [place], [address], 06/08/2024 18:37:41 06/08/19 25 06/08/2024 US, obste tric, 2nd or 3rd trime ster No observ ation record ed. [email or web address] [address], [place], [address], 06/21/2024 00:54:00 10/03/19 25 10/02/2024 US, obste tric, follo w-up No observ ation record ed. [email or web address] [address], [place], [address], 10/03/2024 17:44:54 10/03/19 25 10/02/2024 US, obste tric, follo w-up No observ ation record ed. [email or web address], [place], [address], 10/02/2024 17:37:36 10/03/19 25 10/02/2024 US, obste tric, bioph ysica l profi le + non-s tress test No observ ation record ed. [email or web address] [place] [address], [place], [address], 10/02/2024 17:37:47 10/10/19 25 10/09/2024 US, leon tric, bioph ysica l profi le No observ ation record ed. [facility] [address], [place], [address], 10/09/2024 18:11:19 10/10/19 25 10/09/2024 US, obste tric, bioph ysica l profi le No observ ation record ed. [email or web address] [address], [place], [address], 10/10/2024 12:11:27 Result Notes None recorded. Problems Name Problem SNOMED Code Status Onset Date Resolution Date Notes Provider Name and Address Organization Details Recorded Time Pregnanc y 76560951 Completed 202208/22/2023 Elenita miranda, [facility] 5 17:39:07 Asthma 230386226 Completed mild intermit tent, albutero l PRN Fede Banda null, [facility] 4 14:13:34 Bipolar I disorder 285017860 Completed Fede Jiangle null, [facility] 4 14:13:34 Advanced maternal age 762871991 Completed 2023 bASA Fede Jiangle null, [facility] 4 14:13:34 Advanced maternal age 544785659 Active 2023 bASA Fede Jiangle null, [facility] 4 14:13:34 Prophyla ctic immunoth erapy Completed 06/24/23 given Fede Jiangle null, [facility] 4 14:13:34 Pregnanc y 34558277 Active 2024 Elenita Castillo null, [facility] 5 17:39:07 Pregnanc y-induce d hyperten loyda 26176611 Active last pregnanc y - delivere d at 37 weeks. Silvio Perez MD [address], [place], [address], [place] [facility] 5 17:53:38 RhD negative 049061856 Active 2024 5 rhogam received Chery miranda, [facility] 5 08:28:57 Glucose level above referenc e range 68002266 Active 2024 1 hour elevate doing 3 hour 08/21 Chery Neil [facility], [facility] 5 14:07:38 Mixed anxiety and depressi ve disorder 927198205 Active 2024 Chery Neil [facility], [facility] 5 09:29:48 Bipolar affectiv e disorder , current episode depressi on 676670097 Active 2024 Chery Neil [facility], [facility] 5 09:30:09 Problem Notes None recorded. Procedures Surgical History Date Name Laterality Status Provider Name and Address Organization Details Recorded Time 01/19/20 23 Date of Last Pap Smear completed Dipti Tian [facility] 03/27/2024 14:26:18 04/11/19 08 control of antepartum hemorrhage completed Chery Neil [facility] 04/26/2023 10:45:01 04/11/18 94 tonsillectomy completed Yasmin Will [facility] 01/18/2023 11:33:16 Imaging Results None recorded. Procedure Notes None recorded. Medical Equipment None Reported. Allergies Allergen ID Allergen Name Allergen Category Reaction Reaction Severity Criticality Documentation Date Start Date Code Code System Note Provider Name and Address Organization Details Recorded Time 69787 pineapple extract food Not available Not available Not available 01/18/2023 69758 74 RxNorm Marisara Arturo miranda, [facility] 4 13:21:18 No known drug allergies Medications Name Sig Start Date Stop Date Status Note LastModified by Organization Details LastModified Time fluconazole 100 mg tablet TAKE 2 TABLETS BY MOUTH ON DAY 1, AND THEN 1 TABLET DAILY THEREAFTE R 12/29 completed Not Available Not Available Not Available labetalol 200 mg tablet TAKE 1 TABLET BY MOUTH TWICE DAILY 09/19 completed Not Available Not Available Not Available quetiapine 300 mg tablet TAKE 1 TABLET BY MOUTH ONCE DAILY AT BEDTIME active Not Available Not Available No t Available albuterol sulfate 2.5 mg/3 mL (0.083 %) solution for nebulizatio n USE 1 VIAL IN NEBULIZER ONCE DAILY NEEDED active Not Available Not Available No t Available azithromyci n 250 mg tablet TAKE 2 TABLETS (500 MG) BY ORAL ROUTE ONCE DAILY FOR 1 DAY THEN 1 TABLET (250 MG) BY ORAL ROUTE ONCE DAILY FOR 4 DAYS 09/19 completed Not Available Not Available Not Available ondansetron HCl 4 mg tablet TAKE 1 TABLET BY MOUTH EVERY 4 TO 6 HOURS NEEDED 08/21 completed Not Available Not Available Not Available prednisone 20 mg tablet TAKE 2 TABLETS BY MOUTH DAILY FOR 5 DAYS THEN TAKE 1 TABLET BY MOUTH DAILY FOR 5 DAYS 03/29 completed Not Available Not Available Not Available quetiapine 200 mg tablet TAKE 1 TABLET BY MOUTH AT BEDTIME 03/27 completed Not Available Not Available Not Available sumatriptan 50 mg tablet TAKE 1 TABLET BY MOUTH ONCE DAILY NEEDED 09/19 completed Not Available Not Available Not Available acetaminoph en 300 mg-codeine 15 mg tablet TAKE 1 TO 2 TABLETS BY MOUTH EVERY 4 HOURS NEEDED 09/19 completed Not Available Not Available Not Available ondansetron 8 mg disintegrat ing tablet DISSOLVE 1 TABLET IN MOUTH TWICE DAILY active Not Available Not Available No t Available oseltamivir 75 mg capsule 03/01 completed Not Available Not Available Not Available polymyxin B sulfate 10,000 unit-trimet hoprim 1 mg/mL eye drops INSTILL 1 DROP IN LEFT EYE EVERY 3 HOURS WHILE AWAKE FOR 7 DAYS. DO NOT EXCEED 6 DOSES IN 24 HOURS 09/19 completed Not Available Not Available Not Available albuterol sulfate HFA 90 mcg/actuati on aerosol inhaler INHALE 2 PUFFS EVERY 4 HOURS NEEDED FOR WEEZING active Not Available Not Available No t Available norethindro ne (contracept robson) 0.35 mg tablet TAKE 1 TABLET BY MOUTH ONCE DAILY 12/29 completed Not Available Not Available Not Available metoclopram brandee 10 mg tablet TAKE 1 TABLET BY MOUTH 4 TIMES DAILY 08/21 completed Not Available Not Available Not Available Colace 09/19 completed Not Available Not Available Not Available 06/20 completed Not Available Not Available Not Available quetiapine 50 mg tablet TAKE 1 TABLET BY MOUTH EVERY NIGHT AT BEDTIME X3 DAYS, THEN 2 TABS AT BEDTIME X7 DAYS, THEN 3 TABS AT BEDTIME 06/20 completed Not Available Not Available Not Available Diclegis 10 mg-10 mg tablet,angelita yed release Take 2 tablets every day by oral route as needed. 03/01 completed Not Available Not Available Not Available EluRyng 0.12 mg-0.015 mg/24 hr vaginal ring INSERT 1 VAGINAL RING EVERY MONTH BY VAGINAL ROUTE FOR 90 DAYS 03/27 completed Not Available Not Available Not Available WesTab Plus 27 mg iron-1 mg tablet TAKE 1 TABLET BY MOUTH ONCE DAILY active Not Available Not Available No t Available Vitals Date Recorded Body height Body mass index (BMI) Body weight Systolic blood pressure Diastolic blood pressure Provider Name and Address Organization Details Last Updated DateTime 10/09/2024 152.4 cm 36.7 kg/m2 76982.37 g 131 mm[Hg] 84 mm[Hg] AISSATOU Lara [facility] 16:14:46 Social History Question Answer Notes LastModified by Organizat ion Details LastModified Time Tobacco Smoking Status Never Smoker Niyah Mikhail miranda [facility] 04/26/2023 09:29:27 Are You Blind Or Do You Have Difficulty Seeing? No Information n ot available 03/01/2023 What Is Your Level Of Caffeine Consumption? Moderate Information not available 06/21/2023 How Much Tobacco Do You Chew? None Information not available 03/29/2023 In The 14 Days Before Symptom Onset, Have You Had Close Contact With A Laboratory-confirm ed COVID-19 While That Case Was Ill? No Information n ot available 03/01/2023 In The 14 Days Before Symptom Onset, Have You Had Close Contact With A Person Who Is Under Investigation For COVID-19 While That Person Was Ill? No Information not available 03/01/2023 Have You Been To An Area Known To Be High Risk For COVID-19? No Information not available 03/01/2023 Are You Deaf Or Do You Have Serious Difficulty Hearing? No Information not available 03/01/2023 What Type Of Diet Are You Following? REGULAR Information n ot available 03/01/2023 What Is The Highest Grade Or Level Of School You Have Completed Or The Highest Degree You Have Received? [id number] Information not available 03/01/2023 Are There Any Guns Present In Your Home? No Information not available 03/01/2023 Do You Use Protection During Sex? No Information not available 03/01/2023 Do You Use Your Seat Belt Or Car Seat Routinely? Yes Information not available 03/01/2023 Do You Have Smoke And Carbon Monoxide Detectors In Your Home? Yes Information not available 03/01/2023 How Much Tobacco Do You Smoke? No Information not available 03/01/2023 Do You Use Sunscreen Routinely? No Information not available 03/01/2023 Has Tobacco Cessation Counseling Been Provided? No [email or web address] Information not available 04/26/2023 Have You Used IV Drugs? No Information not available 03/01/2023 Do You Have Difficulty Walking Or Climbing Stairs? No Information not available 08/21/2024 Sex: Unknown Functional Status Question Answer Note LastModified by Organizat ion Details LastModified Time Do you use any illicit or recreational drugs? No [email or web address] Information not available 01/18/2023 Do you or have you ever used any other forms of tobacco or nicotine? No [email or web address] Information not available 04/26/2023 What is your level of alcohol consumption? None Information not available 03/29/2023 Are you able to walk? YESWOREST Information not available 03/01/2023 Are you able to care for yourself? Yes [email or web address] Information n ot available 08/21/2024 Do you have difficulty dressing or bathing? No [email or web address] Information not available 08/21/2024 What is your exercise level? Occasional Information not available 06/21/2023 Mental Status Question Answer Note LastModified by Organization D etails LastModified Time Do you feel stressed (tense, restless, nervous, or anxious, or unable to sleep at night)? [id number] Information not available 06/21/2023 Family History Relationship Description Onset Age of this Age Resolved Age Notes LastModified by Organization Details LastModified Time Father No current problems or disability [email or web address] Not available 03/01 14:38:01 Mother No current problems or disability [email or web address] Not available 03/01 14:38:01 Medical History Condition Response Allergies (Food, seasonal, environmental ) Y Other Y Breast Cancer N Drug/Latex Allergies/Reactions Y Blood Transfusion N Dermatologic Disorders N Lung Disease N Defects or Inherited Disease N Breast Problem N Gestational Diabetes N Hematologic disorders N Anesthesia Complications N History of STI N Deep Vein Thrombosis N Polycystic ovary syndrome N Anxiety Disorder Y Autoimmune disease N Arthritis N Infertility N Polyps N Acid Reflux (GERD) N History of abnormal pap N Cancer N Stroke N Varicosities N Neurologic/Epilepsy N Endometriosis N High Cholesterol N Headaches N Fibromyalgia N Kidney Disease N Heart Problems N Kidney or Bladder Problems N Thyroid Problems N GI Problems N Eating Disorder N Anemia N Art (IVF or FET) N Psychiatric Illness Y Ovarian Cancer N Diabetes N Pulmonary (TB, Asthma) N Hepatitis/Liver Disease N No Past Medical History N Eczema N Urinary Tract Infection N Abuse/Domestic Violence N Asthma Y Trauma/Violence N Depression/ depression Y Heart Disease N Pre-Eclampsia N Hypertension N Osteoporosis N Thrombophilias N Gynecological History Statement/Question Response Flow Moderate Date of Last Mammogram Date of LMP 01/19/2024 Duration of Flow (days) 5 Current Control Method Date of Last Colonoscopy Frequency of Cycle (Q days) 28 Sexually Active? Y Menses Monthly N Date of DEXA bone scan Age of first menstrual cycle 16 Date of Last Pap Smear 01/18/2023 Sexual Problems? N Desired Control Method None LMP Approximate Obstetrics History GPAL:G 4 P 3 0 0 3 Type Value Full Term 3 Living 3 Total 4 Past Encounters Encounter ID Performer Location Encounter Start Date Encounter Closed Date Diagnosis/Indication Diagnosis SNOMED-CT Code Diagnosis ICD10 Code Diagnosis Note [id number] Silvio Perez MD [place] [address],[place] [address] 09/17/2024 11:14:44 09/17/2024 19:04:10 [id number] DAMIÁN MARTÍNEZ MD [place] [address],[place] [address] 09/17/2024 12:11:15 09/17/2024 13:51:08 Multigravida of advanced maternal age 584289479 O09.523 - continue PNV- repeat growth at 36 weeks for hx of short interval Finding of pattern of 720795689 O09.899 - repeat growth US at 36 weeks due to increased risk of FGR with short interval and AMA Gestation period, 34 weeks 88455905 Z3A.34 - continue PNV [id number] DAMIÁN MARTÍNEZ MD [place] [address],[place] [address] 10/02/2024 15:19:07 10/02/2024 16:04:53 Observational assessment 990108496 Z03.74 O41.03X0 Z3A.36 [id number] DAMIÁN MARTÍNEZ MD [place] [address],[place] [address] 10/02/2024 15:19:19 10/02/2024 16:45:34 Oligohydramnios 81389872 O41.03X0 - BELLA 5.2cm with 2x2cm pocket- encouraged hydration- repeat in 1 week Multigravi da of advanced maternal age 287304517 O09.523 - continue PNV Gestation period, 36 weeks 01611855 Z3A.36 - gbs collected [id number] DAMIÁN MARTÍNEZ MD [place] [address],[place] [address] 10/09/2024 15:33:20 10/09/2024 16:08:30 Oligohydramnios 98133978 O41.03X0 Z3A.37 - BELLA 5.2cm with 2x2cm pocket- encouraged hydration- repeat in 1 week [id number] DAMIÁN MARTÍNEZ MD [place] [address],[place] [address] 10/09/2024 15:33:32 10/09/2024 16:36:35 Swelling of lower limb 713954203 M79.89 - patient reports elevated BPs at home and leg swelling- will check labs, precaution s discussed Gestation period, 37 weeks 80639686 Z3A.37 - continue PNV- will schedule EIL Multigravi da of advanced maternal age 746794145 O09.523 - continue PNV Health Concerns Section Related Observation LastModified by Organization Detai ls LastModified Time None Recorded Concern Status LastModified by Organization Details LastModified Time None Recorded Payers Encounter Date Sequence Insurance Name Policy Number Policy Grullon Covered Member ID Grullon Member ID Guarantor Name 10/09/2024 1 [place] [facility] Fitz Ballard [id number] Lorenza Ballard OBGyn Episode Ob Episode Information Episode Created Date Number of Fetuses Patient Bloodtype Patient rh Status Prepregnancy Weight lbs Domestic Partner Domestic Partner Phone Father Name Publicity Expert Status 04/26/19 25 1 O Negative 172 [employer] OPEN Fetus Data First Name Last Name Admitted to NICU Weight (g) Sex Living Outcome Pediatric Complications Fetus ID Race Codes Race Delivery Type [id number] Problems Problem Notes Problem Name Start Date End Date Resolution Snomed Code Not e Glucose level above reference range 08/13/2024 40574132 1 hour eleva te doing 3 hour 08/21 RhD negative 08/06/2024 469402550 025 rhogam received -induced hypertension 89667331 last - delivered at 37 weeks. Brigido Calculation Initial Brigido Date Initial Exam Date Initial Exam Provider Initial Ultrasound Date Last Menstrual Period Date Ultra Sound Weeks Gestation 10/25/2024 04/26/2024 03/27/2024 01/19/2024 9 Eighteen To Twenty Week Brigido Update Ultra Sound Date Fundal Height At Umbil Quickening Date Ultra Sound Latest Weeks Gestation Final Brigido Confirmed By Final Brigido Confirmed Date Final Brigido Date Ultra Sound Latest Days Gestation 0 [email or web address] 05/18/2024 10/26/19 25 0 Pre- Flowsheet Flowsheet Date 04/26/2024 Patel Score Blood Edema Fundus Height Fundus Units Glucose Ketones Leukocytes Nitrite Labor Signs Protein Cervic Dilation Cervic Effacement Cervic Station Type Weight in lbs Pre/Post Dialysis Refused Weight 176.453592318687 BP Diastolic BP Location Tested BP Systolic BP Type 80 L arm 126 sitting Fetus Heart Rate Present A 154 Fetus Movement A No Comments this patient is a 39-year-ol d multiparous female at 14 weeks' gestation who presents for initial care. She has a history of term vaginal births. Her medical, surgical, obstetric history is unremarkable. She is vaccinated. She was given precautions recommendations for . We talked about vaccines in . Talked about care in detail. She is having genetic testing. She had a normal 12 week ultrasound. To begin routine care. Flowsheet Date 05/18/2024 Patel Score Blood Edema Fundus Height Fundus Units Glucose Ketones Leukocytes Nitrite Labor Signs Protein Cervic Dilation Cervic Effacement Cervic Station neg none Type Weight in lbs Pre/Post Dialysis Refused 177.612505594423 BP Diastolic BP Location Tested BP Systolic BP Type 77 L arm 119 sitting Fetus Heart Rate Present A 150 Fetus Movement A No Comments Patient c/o of slight nausea . States has had migaines the past few days. LR male NIPT! Has been sick, discussed symptomatic treatment. Discussed anatomy US for next visit. RTC 4 weeks. Flowsheet Date 06/08/2024 Patel Score Blood Edema Fundus Height Fundus Units Glucose Ketones Leukocytes Nitrite Labor Signs Protein Cervic Dilation Cervic Effacement Cervic Station Type Weight in lbs Pre/Post Dialysis Refused BP Diastolic BP Location Tested BP Systolic BP Type Fetus Heart Rate Present Fetus Movement Comments Flowsheet Date 06/18/2024 Patel Score Blood Edema Fundus Height Fundus Units Glucose Ketones Leukocytes Nitrite Labor Signs Protein Cervic Dilation Cervic Effacement Cervic Station neg none Type Weight in lbs Pre/Post Dialysis Refused Weight 179.797123959255 BP Diastolic BP Location Tested BP Systolic BP Type 76 R arm 113 sitting Fetus Heart Rate Present A 155 Fetus Movement A Yes Comments Doing well. Good movem ent, no cramping or bleeding. Migraines improved. Anatomy complete and normal, EFW 36%. Repeat at 32 weeks due to short interval and increased risk of FGR. RTC 4 weeks. Flowsheet Date 07/09/2024 Patel Score Blood Edema Fundus Height Fundus Units Glucose Ketones Leukocytes Nitrite Labor Signs Protein Cervic Dilation Cervic Effacement Cervic Station neg none none Type Weight in lbs Pre/Post Dialysis Refused 178.503228892651 BP Diastolic BP Location Tested BP Systolic BP Type 73 L arm 105 sitting Fetus Heart Rate Present A 155 Fetus Movement A Yes Comments Good movement. No cram ping or bleeding. Discussed GCT and labs with Katerin, orders given to take to [facility] around 27 weeks. BP well controlled. No other issues. RTC 4 weeks. Flowsheet Date 08/06/2024 Patel Score Blood Edema Fundus Height Fundus Units Glucose Ketones Leukocytes Nitrite Labor Signs Protein Cervic Dilation Cervic Effacement Cervic Station 26 cm Type Weight in lbs Pre/Post Dialysis Refused Weight 179.862917039397 BP Diastolic BP Location Tested BP Systolic BP Type 79 L arm 123 sitting Fetus Heart Rate Present A 148 Present Fetus Movement A Yes Comments no complaints, no problems, routine care, no contractions, no vaginal bleeding, no loss of fluid, no cramping Flowsheet Date 08/21/2024 Patel Score Blood Edema Fundus Height Fundus Units Glucose Ketones Leukocytes Nitrite Labor Signs Protein Cervic Dilation Cervic Effacement Cervic Station neg none 31 cm Type Weight in lbs Pre/Post Dialysis Refused 181.090338281888 BP Diastolic BP Location Tested BP Systolic BP Type 77 111 Fetus Heart Rate Present A 134 Fetus Movement A Yes Comments Patient is having pelvic humphrey n and nausea. ok to wear maternity support belt GTT today, +FM education and preacutions f/u 2 weeks Flowsheet Date 09/17/2024 Patel Score Blood Edema Fundus Height Fundus Units Glucose Ketones Leukocytes Nitrite Labor Signs Protein Cervic Dilation Cervic Effacement Cervic Station Type Weight in lbs Pre/Post Dialysis Refused BP Diastolic BP Location Tested BP Systolic BP Type Fetus Heart Rate Present Fetus Movement Comments Flowsheet Date 09/17/2024 Patel Score Blood Edema Fundus Height Fundus Units Glucose Ketones Leukocytes Nitrite Labor Signs Protein Cervic Dilation Cervic Effacement Cervic Station Type Weight in lbs Pre/Post Dialysis Refused Weight 186.790614088257 BP Diastolic BP Location Tested BP Systolic BP Type 85 L arm 124 sitting Fetus Heart Rate Present A 130 Fetus Movement A Yes Comments Good movement. No cont ractions, LOF, VB. Needs growth US scheduled. Would like to await spontaneous labor. Discussed GBS for next visit. RTC 2 weeks. Flowsheet Date 10/02/2024 Patel Score Blood Edema Fundus Height Fundus Units Glucose Ketones Leukocytes Nitrite Labor Signs Protein Cervic Dilation Cervic Effacement Cervic Station Type Weight in lbs Pre/Post Dialysis Refused BP Diastolic BP Location Tested BP Systolic BP Type Fetus Heart Rate Present Fetus Movement Comments Flowsheet Date 10/02/2024 Patel Score Blood Edema Fundus Height Fundus Units Glucose Ketones Leukocytes Nitrite Labor Signs Protein Cervic Dilation Cervic Effacement Cervic Station neg trace Type Weight in lbs Pre/Post Dialysis Refused Weight 186.668403892910 BP Diastolic BP Location Tested BP Systolic BP Type 84 124 Fetus Heart Rate Present A 157 Fetus Movement A Yes Comments Good movement. No cram ping or bleeding. [facility] BP [facility], had normal workup and normal BPs while admitted. Denies headaches, vision changes, chest pain, dyspnea, RUQ pain. Feeling good today. GBS collected today. BELLA low-normal, 5.2cm with 2x2 pocket. Repeat US next week. RTC 1 week. Flowsheet Date 10/09/2024 Patel Score Blood Edema Fundus Height Fundus Units Glucose Ketones Leukocytes Nitrite Labor Signs Protein Cervic Dilation Cervic Effacement Cervic Station Type Weight in lbs Pre/Post Dialysis Refused BP Diastolic BP Location Tested BP Systolic BP Type Fetus Heart Rate Present Fetus Movement Comments Flowsheet Date 10/09/2024 Patel Score Blood Edema Fundus Height Fundus Units Glucose Ketones Leukocytes Nitrite Labor Signs Protein Cervic Dilation Cervic Effacement Cervic Station neg trace Type Weight in lbs Pre/Post Dialysis Refused Weight 188.899471959405 BP Diastolic BP Location Tested BP Systolic BP Type 84 L arm 131 sitting Fetus Heart Rate Present A Present Fetus Movement A Yes Comments Good movement. No cram ping or bleeding. Having some feet/leg swelling. Reports elevated BP at home, normal in office today. Would like to schedule EIL at 39 weeks, will plan for 10/19. BELLA normal today, 9.0 with 8/8 BPP. P Menstrual History Last Menstrual Date Menses Monthly On Bcp Conception Prior Menses Frequency Hcg Plus Date Menarche Onset Age 1001/19[birth year]24 true 30 Delivery Information Delivery Date Delivery Type Labor Anesthesia Weeks Gestation Incision Type Labor Labor Length Hrs Delivered By Post Complications Tubal Sterilization Discharge Date Comments Discharge Information Feeding Method Contraceptive Method Maternal HG B and HCT Levels
--- OUTSIDE RECORDS SUMMARY | 2024-10-10 23:01 | XMS_ITS | Data Portability ---
Author Organization [facility] [place] Address [address] [place] [address] [place] [address] Assessment Encounter Date Assessment Date Assessment LastModified by Organization Details LastModified Time 09/17/2024 09/17/2024 Patient is ___weeks . Discussed plan. [email or web address] Not available 09/17/2024 12:10:20 10/02/2024 10/02/2024 Patient is ___weeks . Discussed plan. [email or web address] Not available 10/02/2024 16:10:48 Plan of Treatment Reminders Order Date Submit Date Provider Last Modified By Organization Details Last Modified Time Details Appointments OB ROUTINE 2024 03:45P Mau MARTÍNEZ MD Not available Not available Not available INDUCTION 2024 05:00A Mau MARTÍNEZ MD Not available Not available Not available Lab unlisted lab - CMP/CBC/u estefany acid 2024 025 [facility] (Lab), [address], [place], [address], 10/09/2024 16:35:35 protein:c reatinine ratio, urine 2024 025 [facility] (Lab), [address], [place], [address], 10/09/2024 16:35:35 Referral None recorded. Procedures None recorded. Surgeries None recorded. Imaging US, obstetric , biophysic al profile 2024 025 [place], [address], [place], [address], 10/09/2024 19:09:40 US, obstetric , follow-up 2024 025 [email or web address] [place], [address], [place], [address], 10/02/2024 17:40:46 US, obstetric , biophysic al profile + non-stres s test 2024 025 [facility] [place], [address], [place], [address], 10/02/2024 17:37:46 Medication Orders None recorded. Patient TargetsNo targets recorded. Patient InstructionsNo instructions recorded. Reason for Referral None Reported. Results Created Date Observation Date Name Description Value Unit Range Abnormal Flag Note LastModifiedBy Organization Detail LastModifiedTime 08/22/1908/21/2024 GTT - GESTA MACARENA L, 3 HOUR, ACOG glucose, fasting acog 77 mg/dL 70-94 Not Available [facility] (Lab) [address] [place], [address], 08/22/2024 07:09:50 08/22/19 25 08/21/2024 GTT - GESTA MACARENA L, 3 HOUR, ACOG glucose, 1 hour acog 180 mg/dL 70-179 high Not Available [facility] (Lab) [address] [place], [address], 08/22/2024 07:09:50 08/22/19 25 08/21/2024 GTT - GESTA MACARENA L, 3 HOUR, ACOG glucose, 2 hour acog 151 mg/dL 70-154 Not Available [facility] (Lab) [address] [place], [address], 08/22/2024 07:09:50 08/22/19 25 08/21/2024 GTT - GESTA MACARENA L, 3 HOUR, ACOG glucose, 3 hour acog 110 mg/dL 70-139 Not Available [facility] (Lab) [address], [place], [address], 08/22/2024 07:09:50 10/03/19 25 10/02/2024 US, obste tric, follo w-up No observ ation record ed. [email or web address] [address], [place], [address], 10/03/2024 17:44:54 10/03/19 25 10/02/2024 US, obste tric, follo w-up No observ ation record ed. [facility] [place] [address], [place], [address], 10/02/2024 17:37:36 10/03/19 25 10/02/2024 US, obste tric, bioph ysica l profi le + non-s tress test No observ ation record ed. [address], [place], [address], 10/02/2024 17:37:47 10/10/19 25 10/09/2024 US, obste tric, bioph ysica l profi le No observ ation record ed. [facility] [address], [place], [address], 10/09/2024 18:11:19 10/10/19 25 10/09/2024 US, obste tric, bioph ysica l profi le No observ ation record ed. [email or web address] [address], [place], [address], 10/09/2024 16:10:38 Result Notes None recorded. Problems Name Problem SNOMED Code Status Onset Date Resolution Date Notes Provider Name and Address Organization Details Recorded Time Pregnanc y 31044146 Completed 202208/22/2023 Elenita Castillo [facility], [place] - [facility] 5 17:39:07 Asthma 019798487 Completed mild intermit tent, albutero l PRN Fede Banda null, [facility] 4 14:13:34 Bipolar I disorder 202374602 Completed Fede Banda null, [facility] 4 14:13:34 Advanced maternal age 071467509 Completed 2023 bASA Fede Jiangle null, [facility] 4 14:13:34 Advanced maternal age 903365498 Active 2023 bASA Fede Banda null, [facility] 4 14:13:34 Prophyla ctic immunoth erapy Completed 06/24/23 given Tristaricardo Jiangle null, [facility] 4 14:13:34 Pregnanc y 53761485 Active 2024 Elenita Castillo null, [facility] 5 17:39:07 Pregnanc y-induce d hyperten loyda 77923815 Active last pregnanc y - delivere d at 37 weeks. Silvio Perez MD [address], [place], [address], [facility] 5 17:53:38 RhD negative 016164893 Active 2024 5 rhogam received Chery Neil null, [facility] 5 08:28:57 Glucose level above referenc e range 05476476 Active 2024 1 hour elevate doing 3 hour 08/21 Chery Neil null, [facility] 5 14:07:38 Mixed anxiety and depressi ve disorder 832892830 Active 2024 Chery Neil [facility] 5 09:29:48 Bipolar affectiv e disorder , current episode depressi on 336646502 Active 2024 Chery Neil [facility] 5 09:30:09 Problem Notes None recorded. Procedures Surgical History Date Name Laterality Status Provider Name and Address Organization Details Recorded Time 01/19/20 23 Date of Last Pap Smear completed Dipti Tian [facility] 03/27/2024 14:26:18 04/11/19 08 control of antepartum hemorrhage completed Chery Neil [facility] 04/26/2023 10:45:01 04/11/18 94 tonsillectomy completed Yasmin Will [facility] 01/18/2023 11:33:16 Imaging Results None recorded. Procedure Notes None recorded. Medical Equipment None Reported. Allergies Allergen ID Allergen Name Allergen Category Reaction Reaction Severity Criticality Documentation Date Start Date Code Code System Note Provider Name and Address Organization Details Recorded Time 55594 pineapple extract food Not available Not available Not available 01/18/2023 97469 74 RxNorm Marisa Arturo [facility] 4 13:21:18 No known drug allergies [...] Not Available Not Available Not Available metoclopram barndee 10 mg tablet TAKE 1 TABLET BY [...] and Address Organization Details Last Updated DateTime 09/17/2024 152.4 cm 36.3 kg/m2 30084.18 g 124 mm[Hg] 85 mm[Hg] [facility] 12:17:26 Date Recorded Body height Body mass index (BMI) Body weight Systolic blood pressure Diastolic blood pressure Provider Name and Address Organization Details Last Updated DateTime 10/02/2024 152.4 cm 36.3 kg/m2 55714.18 g 124 mm[Hg] 84 mm[Hg] [facility] 16:11:31 Date Recorded Body height Body mass index (BMI) Body weight Systolic blood pressure Diastolic blood pressure Provider Name and Address Organization Details Last Updated DateTime 10/09/2024 152.4 cm 36.7 kg/m2 47026.37 g 131 mm[Hg] 84 mm[Hg] [facility] 16:14:46 Social History Question Answer Notes LastModified by Organizat ion Details LastModified Time Tobacco Smoking Status Never Smoker Niyah Elizondo [facility] 04/26/2023 09:29:27 Are You Blind Or [...] Or The Highest Degree You Have Received? [id number] Information not available 03/01/2023 Are There Any [...] Has Tobacco Cessation Counseling Been Provided? No [email or web address] Information not available 04/26/2023 Have You Used IV Drugs? No Information not available 03/01/2023 Do You Have Difficulty Walking Or Climbing Stairs? No [email or web address] Information not available 08/21/2024 Sex: Unknown Functional Status Question Answer Note LastModified by Organizat ion Details LastModified Time Do you use any illicit or recreational drugs? No [email or web address] Information not available 01/18/2023 Do you or have you ever used any other forms of tobacco or nicotine? No [email or web address] Information not available 04/26/2023 What is your level of alcohol consumption? None Information not available 03/29/2023 Are you able to walk? [email or web address] Information not available 03/01/2023 Are you able to care for yourself? Yes [email or web address] Information n ot available 08/21/2024 Do you have difficulty dressing or bathing? No [email or web address] Information not available 08/21/2024 What is your exercise level? Occasional Information not available 06/21/2023 Mental Status Question Answer Note LastModified by Organization D etails LastModified Time Do you feel stressed (tense, restless, nervous, or anxious, or unable to sleep at night)? [id number] Information not available 06/21/2023 Family History Relationship [...] SNOMED-CT Code Diagnosis ICD10 Code Diagnosis Note [id number] DAMIÁN MARTÍNEZ MD [place] [address] [address] 01/18/2023 10:49:13 01/18/2023 11:24:53 screening 633753842 Z36.87 Z3A.01 [id number] DAMIÁN MARTÍNEZ MD [place] [address],[place] [address] 01/18/2023 10:51:07 01/18/2023 16:21:14 test positive 469322525 Z32.01 1. Exam today within normal limits.2. Ultrasound today confirms GA and viability; EDC . GC/Clamydi a testing and pap smear done: will f/u as indicated. 4. ACOG guidelines and plan of care for reviewed with patient. All questions answered.5 . Return to office for new OB visit6. Will need new OB labs at next visit.7. Genetic screening: desires. Mild inter mittent asthma 790374567 J45.20 - rare albuterol/ nebulizer use; mostly with seasonal changes [id number] Silvio Perez MD [place] [address],[place] [address] 03/01/2023 13:38:51 03/01/2023 14:12:31 screening 686970728 Z36.82 Z3A.12 [id number] DAMIÁN MARTÍNEZ MD [place] [address],[place] [address] 03/01/2023 13:39:32 03/08/2023 13:18:00 Routine care 683435208 Z34.90 Asthma 230149281 J45.90 9 Gestation period, 12 weeks 59145409 Z3A.12 Upper resp iratory infection 36651345 J06.9 [id number] MD Yonny HINOJOSA [address],[facility] [place] [address] 03/29/2023 16:40:19 03/29/2023 17:26:52 Routine care 033065777 Z34.90 [id number] DAMIÁN MARTÍNEZ MD [place] [address],[place] [address] 04/26/2023 09:28:22 04/26/2023 11:06:10 Advanced maternal age 041996843 O09.522 Gestation period, 20 weeks 31278639 Z3A.20 [id number] Silvio Perez MD [place] [address],[place] [address] 04/26/2023 09:29:22 04/26/2023 10:34:53 screening for malformation 540885433 Z36.3 Z3A.20 [id number] DAMIÁN MARTÍNEZ MD [place] [address],[place] [address] 05/24/2023 16:48:09 05/24/2023 17:16:57 Advanced maternal age 024364156 O09.522 Gestation period, 24 weeks 637752082 Z3A.24 [id number] DAMIÁN MARTÍNEZ MD [place] [address],[place] [address] 06/21/2023 10:02:44 06/21/2023 10:52:14 Advanced maternal age 134790227 O09.522 Gestation period, 28 weeks 43153167 Z3A.28 [id number] Silvio Perez MD [place] [address],[place] [address] 06/27/2023 13:12:20 06/27/2023 14:38:29 Elevated blood-pressure reading without diagnosis of hypertension 889322014 R03.0 [id number] DAMIÁN MARTÍNEZ MD [place] [address],[place] [address] 07/06/2023 16:45:45 07/07/2023 12:50:36 Reduced movement 259939959 O36.8199 Advanced m aternal age 829766559 O09.522 Gestation period, 31 weeks 47669629 Z3A.31 Low matern al weight gain 71704857 O26.13 Pain in pelvis 26258405 R10.2 [id number] DAMIÁN MARTÍNEZ MD [place] [address],[place] [address] 07/06/2023 18:28:30 07/07/2023 12:52:01 68882933 Z33.1 Reduced fe carmella movement 676875656 O36.8199 Z3A.31 [id number] Silvio Perez MD [place] [address],[place] [address] 07/20/2023 13:55:03 07/20/2023 14:40:01 Low maternal weight gain 67981152 O26.13 Z3A.33 [id number] DAMIÁN MARTÍNEZ MD [place] [address],[place] [address] 07/20/2023 13:55:21 07/20/2023 15:19:48 Pain in pelvis 61293198 R10.2 Advanced m aternal age 047586813 O09.522 Low matern al weight gain 28261552 O26.13 Gestation period, 33 weeks 74099228 Z3A.33 [id number] DAMIÁN MARTÍNEZ MD [place] [address],[place] [address] 08/08/2023 12:14:26 08/08/2023 12:52:22 Advanced maternal age 369890604 O09.522 Gestation period, 35 weeks 82127385 Z3A.35 [id number] MD Yonny HINOJOSA [address],[place] [address] 08/12/2023 12:53:18 08/15/2023 06:32:24 Elevated blood-pressure reading without diagnosis of hypertension 205439773 R03.0 Dizziness 384585748 R42 Gestation period, 36 weeks 90499540 Z3A.36 [id number] MD Yonny HINOJOSA [address],[place] [address] 08/17/2023 16:36:02 08/18/2023 06:55:20 Advanced maternal age 114740827 O09.522 - induced hypertension 86315440 O13.9 Gestation period, 37 weeks 53618156 Z3A.37 [id number] MD Yonny HINOJOSA [address],[place] [address] 08/24/2023 12:14:39 08/25/2023 11:31:22 -induced hypertension 41842850 O13.9 - asymptomat ic aside from headaches as below- BP 140s/90s today, consistent with home readings- will start labetalol for maintenanc e antihypert ensives- BP parameters discussed with patient, warning signs reviewed Migraine 02042320 G43.90 9 - low suspicion for headache 2/2 preeclamps ia given headaches are consistent with pre-pregna ncy migraines- will trial sumatripta n Mixed anxi ety and depressive disorder 300069345 F41.8 - discussed EPDS, baby blues vs PPD- no SI/HI- continue seroquel-c ontinue to monitor closely, has made appointmen t with psychiatri st [id number] DAMIÁN MARTÍNEZ MD [place] [address] [address] 09/20/2023 10:21:40 09/20/2023 10:53:21 care 018722737 Z39.2 S/p 4 weeks ago here today for a visit.1. Patient recovering well2. Plans to continue combo feeding3. Interested in POPs for contracept ion at this time. Risks, benefits, and alternativ es reviewed with the patient4. Patient instructed to follow up in 6-12 months for well woman exam unless need arises prior Past pregn linda history of gestational hypertension 204777187 Z87.59 - asymptomat ic- stop BP meds, normotensi ve today [id number] DAMIÁN MARTÍNEZ MD [place] [address] [address] 01/03/2024 11:25:19 01/03/2024 12:08:32 Contraception care management 439945845 Z30.9 Discussed with patient risks, benefits, and alternativ es of contracept ion. Discussed all options, including natural family planning, condoms, combined oral contracept patricio, contracept robson patch, Nuva-ring, Depo-Prove ra, Nexplanon, intrauteri ne device, and sterilizat ion (tubal ligation, vasectomy) . Advised that of the above listed options, only condoms can prevent sexually transmitte d infections and that condoms can be used together with any form of contracept ion. Patient has no contraindi cations. Patient reports that she has used nuvaring and POPs in the past. After extensive counseling , patient at this time desires nuvaring. [id number] DAMIÁN MARTÍNEZ MD [place] [address],[place] [address] 03/27/2024 13:45:34 03/27/2024 14:13:42 [id number] DAMIÁN MARTÍNEZ MD [place] [address],[place] [address] 03/27/2024 13:45:47 03/27/2024 15:24:36 Nausea and vomiting 36444320 R11.2 - no improvemen t with zofran- will add Reglan Advanced m aternal age 487035384 O09.521 - ASA 162mg at 12 weeks Past pregn linda history of gestational hypertension 896185697 Z87.59 - asymptomat ic- normotensi ve today- discussed ASA 162mg for preeclamps ia ppx starting at 12 weeks test positive 733776109 Z32.01 1. Exam today within normal limits.2. Ultrasound today confirms GA and viability; EDC . GC/Clamydi a testing and pap smear done: will f/u as indicated. 4. ACOG guidelines and plan of care for reviewed with patient. All questions answered.5 . Return to office for new OB visit6. Will need new OB labs at next visit.7. Genetic screening: desires. [id number] Silvio Perez MD [place] [address],[place] [address] 04/26/2024 15:51:53 04/26/2024 16:51:17 screening 057101599 Z36.82 Z3A.14 [id number] Silvio Perez MD [place] [address],[place] [address] 04/26/2024 15:52:23 04/26/2024 18:00:53 Routine care 940159360 Z34.90 [id number] DAMIÁN MARTÍNEZ MD [place] [address],[place] [address] 05/18/2024 10:54:08 05/18/2024 12:43:21 Past history of gestational hypertension 004776596 Z87.59 - asymptomat ic- normotensi ve today- discussed ASA 162mg for preeclamps ia ppx starting at 12 weeks Gestation period, 17 weeks 13552010 Z3A.17 - continue PNV [id number] Silvio Perez MD [place] [address],[place] [address] 06/08/2024 10:45:59 06/08/2024 12:11:57 screening for malformation 736731539 Z36.3 O09.522 Z3A.20 [id number] DAMIÁN MARTÍNEZ MD [place] [address],[place] [address] 06/18/2024 10:41:28 06/18/2024 11:17:35 Past history of gestational hypertension 898886133 Z87.59 - asymptomat ic- normotensi ve today- discussed ASA 162mg for preeclamps ia ppx starting at 12 weeks Gestation period, 21 weeks 51216846 Z3A.21 - continue PNV [id number] DAMIÁN MARTÍNEZ MD [place] [address],[place] [address] 07/09/2024 11:23:04 07/09/2024 12:04:43 screening 212590051 Z36.89 O36.0130 Routine an tenatal care 156480905 Z34.90 - continue PNV- repeat growth at 32 weeks for hx of short interval [id number] Silvio Perez MD [place] [address],[place] [address] 08/06/2024 11:41:56 08/06/2024 12:06:06 [facility] 441304271 R11.0 care status 24 9527093 Z34.83 [id number] [facility] [address],[place] [address] 08/21/2024 09:16:05 08/21/2024 09:42:04 Gestation period, 30 weeks 65744316 Z3A.30 [id number] Silvio Perez MD [place] [address],[place] [address] 09/17/2024 11:14:44 09/17/2024 19:04:10 [id number] DAMIÁN MARTÍNEZ MD [place] [address],[place] [address] 09/17/2024 12:11:15 09/17/2024 13:51:08 Multigravida of advanced maternal age 655190658 O09.523 - continue PNV- repeat growth at 36 weeks for hx of short interval Finding of pattern of 408343166 O09.899 - repeat growth US at 36 weeks due to increased risk of FGR with short interval and AMA Gestation period, 34 weeks 75708021 Z3A.34 - continue PNV [id number] MD Yonny HINOJOSA [address],[place] [address] 10/02/2024 15:19:07 10/02/2024 16:04:53 Observational assessment 188636655 Z03.74 O41.03X0 Z3A.36 [id number] DAMIÁN MARTÍNEZ MD [place] [address],[place] [address] 10/02/2024 15:19:19 10/02/2024 16:45:34 Oligohydramnios 65562339 O41.03X0 - BELLA 5.2cm with 2x2cm pocket- encouraged hydration- repeat in 1 week Multigravi da of advanced maternal age 644517121 O09.523 - continue PNV Gestation period, 36 weeks 96469838 Z3A.36 - gbs collected [id number] MD Yonny HINOJOSA [address],[place] [address] 10/09/2024 15:33:20 10/09/2024 16:08:30 Oligohydramnios 73153775 O41.03X0 Z3A.37 - BELLA 5.2cm with 2x2cm pocket- encouraged hydration- repeat in 1 week [id number] MD Yonny HINOJOSA [address],[place] [address] 10/09/2024 15:33:32 10/09/2024 16:36:35 Swelling of lower limb 285267292 M79.89 - patient reports elevated BPs at home and leg swelling- will check labs, precaution s discussed Gestation period, 37 weeks 64517853 Z3A.37 - continue PNV- will schedule EIL Multigravi da of advanced maternal age 890429158 O09.523 - continue PNV Health Concerns Section Related Observation LastModified by Organization Detai ls LastModified Time None Recorded Concern Status LastModified by Organization Details LastModified Time None Recorded Advance Directives Directive None Recorded Payers Insurance Date Sequence Insurance Name Policy Number Policy Grullon Covered Member ID Grullon Member ID Guarantor Name 10/09/2024 1 [place] [facility] [id number] [facility] Episode Ob Episode Information Episode Created Date Number of Fetuses Patient Bloodtype Patient rh Status Prepregnancy Weight lbs Domestic Partner Domestic Partner Phone Father Name Living Nurse Status 01/19/20 23 1 CLOSED Fetus Data First Name Last Name Admitted to NICU Weight (g) Sex Living Outcome Pediatric Complications Fetus ID Race Codes Race Delivery Type 3345.24 1 M Full Term [id number] Vaginal Delivery Brigido Calculation Initial Brigido Date Initial Exam Date Initial Exam Provider Initial Ultrasound Date Last Menstrual Period Date Ultra Sound Weeks Gestation 0 Eighteen To Twenty Week Brigido Update Ultra Sound Date Fundal Height At Umbil Quickening Date Ultra Sound Latest Weeks Gestation Final Brigido Confirmed By Final Brigido Confirmed Date Final Brigido Date Ultra Sound Latest Days Gestation 0 0 Menstrual History Last Menstrual Date Menses Monthly On Bcp Conception Prior Menses Frequency Hcg Plus Date Menarche Onset Age Delivery Information Delivery Date Delivery Type Labor Anesthesia Weeks Gestation Incision Type Labor Labor Length Hrs Delivered By Post Complications Tubal Sterilization Discharge Date Comments 2 36 Discharge Information Feeding Method Contraceptive Method Maternal HG B and HCT Levels Ob Episode Information Episode Created Date Number of Fetuses Patient Bloodtype Patient rh Status Prepregnancy Weight lbs Domestic Partner Domestic Partner Phone Father Name Living Nurse Status 04/26/19 25 1 O Negative 172 Jemarcu s OPEN Fetus Data First Name Last Name Admitted to NICU Weight (g) Sex Living Outcome Pediatric Complications Fetus ID Race Codes Race Delivery Type [id number] Problems Problem Notes Problem Name Start Date End Date Resolution Snomed Code Not e Glucose level above reference range 08/13/2024 92354705 1 hour eleva te doing 3 hour 08/21 RhD negative 08/06/2024 453148231 025 rhogam received -induced hypertension 55963100 last - delivered at 37 weeks. Brigido [...] Date Ultra Sound Latest Days Gestation 0 [email or web address] 05/18/2024 10/26/19 25 0 Pre- Flowsheet Flowsheet Date 04/26/2024 Patel Score Blood Edema Fundus Height Fundus Units Glucose Ketones Leukocytes Nitrite Labor Signs Protein Cervic Dilation Cervic Effacement Cervic Station Type Weight in lbs Pre/Post Dialysis Refused Weight 176.530725755256 BP Diastolic BP Location Tested BP Systolic [...] Type Weight in lbs Pre/Post Dialysis Refused 177.601890224307 BP Diastolic BP Location Tested BP Systolic [...] Weight in lbs Pre/Post Dialysis Refused Weight 179.088958736624 BP Diastolic BP Location Tested BP Systolic [...] Type Weight in lbs Pre/Post Dialysis Refused 178.583705366158 BP Diastolic BP Location Tested BP Systolic [...] Weight in lbs Pre/Post Dialysis Refused Weight 179.989742571459 BP Diastolic BP Location Tested BP Systolic [...] Type Weight in lbs Pre/Post Dialysis Refused 181.102427341450 BP Diastolic BP Location Tested BP Systolic [...] Weight in lbs Pre/Post Dialysis Refused Weight 186.916407264158 BP Diastolic BP Location Tested BP Systolic [...] Weight in lbs Pre/Post Dialysis Refused Weight 186.465972920213 BP Diastolic BP Location Tested BP Systolic BP Type 84 124 Fetus Heart Rate Present A 157 Fetus Movement A Yes Comments Good movement. No cram ping or bleeding. [facility] for elevated BP last night, had normal [...] Weight in lbs Pre/Post Dialysis Refused Weight 188.523419847953 BP Diastolic BP Location Tested BP Systolic BP Type 84 L arm 131 sitting Fetus Heart Rate Present A Present Fetus Movement A Yes Comments Good movement. No cram ping or bleeding. Having some feet/leg swelling. Reports elevated BP at home, normal in office today. Would like to schedule EIL at 39 weeks, will plan for 10/19. BELLA normal today, 9.0 with 11/16 BPP. P Menstrual History Last Menstrual Date Menses Monthly On Bcp Conception Prior Menses Frequency Hcg Plus Date Menarche Onset Age 1001/19/2024 true 28 Delivery Information Delivery Date Delivery Type Labor Anesthesia Weeks Gestation Incision Type Labor Labor Length Hrs Delivered By Post Complications Tubal Sterilization Discharge Date Comments Discharge Information Feeding Method Contraceptive Method Maternal HG B and HCT Levels Ob Episode Information Episode Created Date Number of Fetuses Patient Bloodtype Patient rh Status Prepregnancy Weight lbs Domestic Partner Domestic Partner Phone Father Name Living Nurse Status 01/19/20 23 1 CLOSED Fetus Data First Name Last Name Admitted to NICU Weight (g) Sex Living Outcome Pediatric Complications Fetus ID Race Codes Race Delivery Type 2948.34 8 F Full Term 43090 Vaginal Delivery Brigido Calculation Initial Brigido Date Initial Exam Date Initial Exam Provider Initial Ultrasound Date Last Menstrual Period Date Ultra Sound Weeks Gestation 0 Eighteen To Twenty Week Brigido Update Ultra Sound Date Fundal Height At Umbil Quickening Date Ultra Sound Latest Weeks Gestation Final Brigido Confirmed By Final Brigido Confirmed Date Final Brigido Date Ultra Sound Latest Days Gestation 0 0 Menstrual History Last Menstrual Date Menses Monthly On Bcp Conception Prior Menses Frequency Hcg Plus Date Menarche Onset Age Delivery Information Delivery Date Delivery Type Labor Anesthesia Weeks Gestation Incision Type Labor Labor Length Hrs Delivered By Post Complications Tubal Sterilization Discharge Date Comments 8 36 internal bleeding Discharge Information Feeding Method Contraceptive Method Maternal HG B and HCT Levels Ob Episode Information Episode Created Date Number of Fetuses Patient Bloodtype Patient rh Status Prepregnancy Weight lbs Domestic Partner Domestic Partner Phone Father Name Living Nurse Status 03/01/20 23 1 O Negative 168 CLOSED Fetus Data First Name Last Name Admitted to NICU Weight (g) Sex Living Outcome Pediatric Complications Fetus ID Race Codes Race Delivery Type 2466.40 67 F true Full Term 10120 Vaginal Delivery Problems Problem Notes Problem Name Start Date End Date Resolution Snomed Code Not e Asthma [id number] mild inter mittent, albuterol PRN Advanced maternal age 04/26/2023 [id number] bASA Bipolar I disorder [id number] Prophylactic immunotherapy [id number] 06/24/23 given Brigido Calculation Initial Brigido Date Initial Exam Date Initial Exam Provider Initial Ultrasound Date Last Menstrual Period Date Ultra Sound Weeks Gestation 09/07/2023 03/01/2023 01/18/2023 11/30/2022 6 Eighteen To Twenty Week Brigido Update Ultra Sound Date Fundal Height At Umbil Quickening Date Ultra Sound Latest Weeks Gestation Final Briigdo Confirmed By Final Brigido Confirmed Date Final Brigido Date Ultra Sound Latest Days Gestation 0 08/17/2023 09/07/19 24 0 Pre- Flowsheet Flowsheet Date 03/01/2023 Patel Score Blood Edema Fundus Height Fundus Units Glucose Ketones Leukocytes Nitrite Labor Signs Protein Cervic Dilation Cervic Effacement Cervic Station none 12 none neg Type Weight in lbs Pre/Post Dialysis Refused Weight 164.68978436053 BP Diastolic BP Location Tested BP Systolic BP Type 78 124 Fetus Heart Rate Present A 161 Fetus Movement Comments Patient presents to [facility] care. has been overall uncomplicated. Reports congestion, drainage, cough for 2 weeks. No improvement with steroids. Will try z trina. No nausea or vomiting. No fevers. Will begin routine care. Flowsheet Date 03/29/2023 Patel Score Blood Edema Fundus Height Fundus Units Glucose Ketones Leukocytes Nitrite Labor Signs Protein Cervic Dilation Cervic Effacement Cervic Station 16 Type Weight in lbs Pre/Post Dialysis Refused Weight 169.279761004221 BP Diastolic BP Location Tested BP Systolic BP Type 63 112 Fetus Heart Rate Present A 145 Fetus Movement A Yes Comments Having some fatigue, nausea improving. No movement yet. No cramping, bleeding, LOF. Congestion improved after z trina. Anatomy US next visit. Flowsheet Date 04/26/2023 Patel Score Blood Edema Fundus Height Fundus Units Glucose Ketones Leukocytes Nitrite Labor Signs Protein Cervic Dilation Cervic Effacement Cervic Station Type Weight in lbs Pre/Post Dialysis Refused BP Diastolic BP Location Tested BP Systolic BP Type Fetus Heart Rate Present Fetus Movement Comments Flowsheet Date 04/26/2023 Patel Score Blood Edema Fundus Height Fundus Units Glucose Ketones Leukocytes Nitrite Labor Signs Protein Cervic Dilation Cervic Effacement Cervic Station Type Weight in lbs Pre/Post Dialysis Refused BP Diastolic BP Location Tested BP Systolic BP Type Fetus Heart Rate Present A 145 Fetus Movement A Yes Comments Minimal nausea. No cramping, bleeding. Minimal congestion. Starting to feel flutters. Anatomy complete and normal today, EFW 51%. RTC 4 weeks. Flowsheet Date 05/24/2023 Patel Score Blood Edema Fundus Height Fundus Units Glucose Ketones Leukocytes Nitrite Labor Signs Protein Cervic Dilation Cervic Effacement Cervic Station Type Weight in lbs Pre/Post Dialysis Refused Weight 165.370759740094 BP Diastolic BP Location Tested BP Systolic BP Type 66 123 Fetus Heart Rate Present A 150 Fetus Movement A Yes Comments Good movement. No ctx, LOF, VB. Congestion improved. Discussed low weight gain, will monitor next visit; if still low, will check growth. GCT and Rhogam next visit. Flowsheet Date 06/21/2023 Patel Score Blood Edema Fundus Height Fundus Units Glucose Ketones Leukocytes Nitrite Labor Signs Protein Cervic Dilation Cervic Effacement Cervic Station Type Weight in lbs Pre/Post Dialysis Refused Weight 168.286685129893 BP Diastolic BP Location Tested BP Systolic BP Type 78 117 Fetus Heart Rate Present A 150 Fetus Movement A Yes Comments Baby active. No ctx, LOF. On e episode of pink spotting when wiping, nothing since that time. Gained 3 lbs since last visit, appetite somewhat improved if she eats breakfast. Will continue to monitor. Glucose test today, will go to hospital for rhogam. RTC 2 weeks. Flowsheet Date 06/27/2023 Patel Score Blood Edema Fundus Height Fundus Units Glucose Ketones Leukocytes Nitrite Labor Signs Protein Cervic Dilation Cervic Effacement Cervic Station Type Weight in lbs Pre/Post Dialysis Refused BP Diastolic BP Location Tested BP Systolic BP Type 77 125 Fetus Heart Rate Present Fetus Movement Comments Flowsheet Date 07/06/2023 Patel Score Blood Edema Fundus Height Fundus Units Glucose Ketones Leukocytes Nitrite Labor Signs Protein Cervic Dilation Cervic Effacement Cervic Station Type Weight in lbs Pre/Post Dialysis Refused Weight 169.068869805687 BP Diastolic BP Location Tested BP Systolic BP Type 83 123 Fetus Heart Rate Present Fetus Movement A Decreased Comments Patient reports decreased fe carmella movement x3 days. Some weaker movements. Will get NST to evaluate status. No LOF, VB or ctx. Low maternal weight gain, will order growth US with next appointment. Also reports increased pelvic pain, will trial maternity belt and send referral for pelvic floor PT. RTC 2 weeks if NST reactive. TO hospital for evaluation if nonreactive. Flowsheet Date 07/06/2023 Patel Score Blood Edema Fundus Height Fundus Units Glucose Ketones Leukocytes Nitrite Labor Signs Protein Cervic Dilation Cervic Effacement Cervic Station Type Weight in lbs Pre/Post Dialysis Refused BP Diastolic BP Location Tested BP Systolic BP Type Fetus Heart Rate Present Fetus Movement Comments Flowsheet Date 07/20/2023 Patel Score Blood Edema Fundus Height Fundus Units Glucose Ketones Leukocytes Nitrite Labor Signs Protein Cervic Dilation Cervic Effacement Cervic Station Type Weight in lbs Pre/Post Dialysis Refused BP Diastolic BP Location Tested BP Systolic BP Type Fetus Heart Rate Present Fetus Movement Comments Flowsheet Date 07/20/2023 Patel Score Blood Edema Fundus Height Fundus Units Glucose Ketones Leukocytes Nitrite Labor Signs Protein Cervic Dilation Cervic Effacement Cervic Station Type Weight in lbs Pre/Post Dialysis Refused Weight 171.896763770359 BP Diastolic BP Location Tested BP Systolic BP Type 86 124 Fetus Heart Rate Present A 134 Fetus Movement A Yes Comments Good movement. Pelvic pain worse with transferring positions and getting out of bed. Will try pelvic floor PT. Referral sent. No ctx, LOF, VB. EFW 44%, vertex, normal BELLA. RTC 2 weeks. Discussed preadmit appointment. Flowsheet Date 08/08/2023 Patel Score Blood Edema Fundus Height Fundus Units Glucose Ketones Leukocytes Nitrite Labor Signs Protein Cervic Dilation Cervic Effacement Cervic Station 0cm 50% Type Weight in lbs Pre/Post Dialysis Refused Weight 176.145782953040 BP Diastolic BP Location Tested BP Systolic BP Type 80 132 Fetus Heart Rate Present A 130 Fetus Movement A Yes Comments Doing well, irregular contra ctions improved with laying down. No VB or LOF. Good movement. Needs to schedule preadmission appointment. GBS collected today. SVE performed, closed and soft. RTC 1 week. Flowsheet Date 08/12/2023 Patel Score Blood Edema Fundus Height Fundus Units Glucose Ketones Leukocytes Nitrite Labor Signs Protein Cervic Dilation Cervic Effacement Cervic Station Type Weight in lbs Pre/Post Dialysis Refused Weight 174.333324178797 BP Diastolic BP Location Tested BP Systolic BP Type 78 133 Fetus Heart Rate Present A 140 Fetus Movement A Yes Comments Here for problem visit, see note. Flowsheet Date 08/17/2023 Patel Score Blood Edema Fundus Height Fundus Units Glucose Ketones Leukocytes Nitrite Labor Signs Protein Cervic Dilation Cervic Effacement Cervic Station Type Weight in lbs Pre/Post Dialysis Refused Weight 173.546758996547 BP Diastolic BP Location Tested BP Systolic BP Type 88 146 Fetus Heart Rate Present Fetus Movement A Yes Comments Baby moving well. Headaches, improved with tylenol. Some visual floaters. No chest pain or dyspnea, RUQ or epigastric pain. Meets criteria for gestational hypertension, recommend induction today. Patient to present to [facility] for induction. Menstrual History Last Menstrual Date Menses Monthly On Bcp Conception Prior Menses Frequency Hcg Plus Date Menarche Onset Age 0811/30/2022 Genetic Screening And Infection History Question Response Note Mental Retardation/Autism false Patient's Age Will Be 35 Years Or Older At Estim ated Date of Delivery true Thalassemia (Indonesian, Tamazight, Mediterranean, Or Background): MCV < 80 false Neural Tube Defect (Meningomyelocele, Spina Bifi da, Or Anencephaly) false Congenital Heart Defect false Down Syndrome false Joey-Sachs (eg, Holiness, Cajun, Polish-[place]) f alse Krupa Disease false Sickle Cell Disease Or Trait () false Hemophilia Or Other Blood Disorders false Muscular Dystrophy false Cystic Fibrosis false Buxton's Chorea false Intellectual Disability/Autism false If Yes, Was Person Tested For Fragile X? false Other Inherited Genetic Or Chromosomal Disorder false Maternal Metabolic Disorder (eg, Type 1 Diabetes , PKU) false Patient Or Baby's Father Had A Child With Defects Not Listed Above false Recurrent Loss, Or A Stillbirth false Medications (including Suppl ements, Vitamins, Herbs, OTC Drugs), Illicit/Recreational Drugs, Alcohol false If Yes, Agent(s) And Strength/Dosage false Any Other Genetic History false Live With Someone With TB Or Exposed To TB false Patient Or Partner Has History Of Genital Herpes false Rash Or Viral Illness Since Last Menstrual Perio d false History Of STD, Gonorrhea, Chlamydia, HPV, Syphi lis false Other Infection History false History of HIV false History of Hepatitis false Prior GBS-infected child false Hemoglobinopathy Or Carrier false Other Structural Defect false Recent Travel History Outside of Country false Delivery Information Delivery Date Delivery Type Labor Anesthesia Weeks Gestation Incision Type Labor Labor Length Hrs Delivered By Post Complications Tubal Sterilization Discharge Date Comments 4 Induce d Regional-Ep idural 37.1 false [facility]; Advanced maternal age ,A sthma,Bip olar I disorder, Prophylac tic immunothe rapy Discharge Information Feeding Method Contraceptive Method Maternal HG B and HCT Levels
--- OUTSIDE RECORDS SUMMARY | 2024-10-10 23:01 | XMS_ITS | Continuity of Care Document ---
Author Organization [facility] [place] Address [address] [place] [address] [place] [address] Assessment No assessment recorded. Plan of Treatment Reminders Order Date Submit Date Provider Last Modified By Organization Details Last Modified Time Details Appointments OB ROUTINE 2024 03:45P Mau MARTÍNEZ MD Not available Not available Not available INDUCTION 2024 05:00A Mau MARTÍNEZ MD Not available Not available Not available Lab None recorded. Referral None recorded. Procedures None recorded. Surgeries None recorded. Imaging US, obstetric , biophysic al profile 2024 025 [email or web address] [place], [address], [place], [address], 10/09/2024 19:09:40 Medication Orders None recorded. Patient TargetsNo targets recorded. Patient InstructionsNo instructions recorded. Reason for Referral None Reported. Results Created Date Observation Date Name Description Value Unit Range Abnormal Flag Note LastModifiedBy Organization Detail LastModifiedTime 04/26/1904/26/2024 US, obste tric, nucha l trans lucen cy No observ ation record ed. [facility] [address], [place], [address], 04/26/2024 18:32:55 04/26/19 25 04/26/2024 US, obste tric, nucha l trans lucen cy No observ ation record ed. [email or web address] [address], [place], [address], 04/26/2024 21:28:29 06/08/19 25 06/08/2024 US, obste tric, 2nd or 3rd trime ster No observ ation record ed. [facility] [address], [place], [address], 06/08/2024 18:37:41 06/08/19 25 06/08/2024 US, obste tric, 2nd or 3rd trime ster No observ ation record ed. [email or web address] [address], [place], [address], 06/21/2024 00:54:00 10/03/19 25 10/02/2024 US, obste tric, follo w-up No observ ation record ed. [email or web address] [address], [place], [address], 10/03/2024 17:44:54 10/03/19 25 10/02/2024 US, obste tric, follo w-up No observ ation record ed. [address], [place], [address], 10/02/2024 17:37:36 10/03/19 25 10/02/2024 US, obste tric, bioph ysica l profi le + non-s tress test No observ ation record ed. [email or web address], [place], [address], 10/02/2024 17:37:47 10/10/19 25 10/09/2024 US, obste tric, bioph ysica l profi le No observ ation record ed. [facility] [address], [place], [address], 10/09/2024 18:11:19 10/10/19 25 10/09/2024 US, obste tric, bioph ysica l profi le No observ ation record ed. [email or web address] [address], [place], [address], 10/10/2024 12:11:27 Result Notes None recorded. Problems Name Problem SNOMED Code Status Onset Date Resolution Date Notes Provider Name and Address Organization Details Recorded Time Pregnanc y 04109458 Completed 202208/22/2023 Elenita Castillo null, [facility] 5 17:39:07 Asthma 737384285 Completed mild intermit tent, albutero l PRN Fede Banda null, [facility] 4 14:13:34 Bipolar I disorder 438103774 Completed Fede Banda null, [facility] 4 14:13:34 Advanced maternal age 266802994 Completed 2023 bASA Fede Banda null, [facility] 4 14:13:34 Advanced maternal age 030876208 Active 2023 bASA Fede Jiangle null, [facility] 4 14:13:34 Prophyla ctic immunoth erapy Completed 06/24/23 given Fede Banda null, [facility] 4 14:13:34 Pregnanc y 98057270 Active 2024 Elenita Castillo null, [facility] 5 17:39:07 Pregnanc y-induce d hyperten loyda 33764490 Active last pregnanc y - delivere d at 37 weeks. Silvio Perez MD [address], [place], [address], [facility] 5 17:53:38 RhD negative 852167620 Active 2024 5 rhogam received Chery Jolynn [facility] 5 08:28:57 Glucose level above referenc e range 02984050 Active 2024 1 hour elevate doing 3 hour 08/21 Chery Jolynn [facility] 5 14:07:38 Mixed anxiety and depressi ve disorder 238572573 Active 2024 Chery Neil [facility] [place], [facility] 5 09:29:48 Bipolar affectiv e disorder , current episode depressi on 136174555 Active 2024 Chery Neil [facility] 5 09:30:09 Problem Notes None recorded. Procedures Surgical History Date Name Laterality Status Provider Name and Address Organization Details Recorded Time 01/19/20 23 Date of Last Pap Smear completed Dipti Tian [facility] 03/27/2024 14:26:18 04/11/19 08 control of antepartum hemorrhage completed Chery Neil [facility] 04/26/2023 10:45:01 04/11/18 94 tonsillectomy completed Yasmin Will [facility] 01/18/2023 11:33:16 Imaging Results None recorded. Procedure Notes None recorded. Medical Equipment None Reported. Allergies Allergen ID Allergen Name Allergen Category Reaction Reaction Severity Criticality Documentation Date Start Date Code Code System Note Provider Name and Address Organization Details Recorded Time 59099 pineapple extract food Not available Not available Not available 01/18/2023 66857 74 RxNorm Marisa Arturo [facility] 4 13:21:18 No known drug allergies Medications Name Sig Start Date Stop Date Status Note LastModified by Organization Details LastModified Time fluconazole 100 mg tablet TAKE 2 TABLETS BY MOUTH ON DAY 1, AND THEN 1 TABLET DAILY THERELAKISHAE Van 12/29 completed Not Available Not Available Not [...] Updated DateTime 10/09/2024 152.4 cm 36.7 kg/m2 74282.37 g 131 mm[Hg] 84 mm[Hg] AISSATOU Lara [facility] 16:14:46 Social History Question Answer Notes LastModified by Organizat ion Details LastModified Time Tobacco Smoking Status Never Smoker Niyah Mikhail miranda [facility] 04/26/2023 09:29:27 Are You Blind Or [...] Or The Highest Degree You Have Received? [id number] Information not available 03/01/2023 Are There Any [...] Has Tobacco Cessation Counseling Been Provided? No [email or web address] Information not available 04/26/2023 Have You Used [...] other forms of tobacco or nicotine? No [email or web address] Information not available 04/26/2023 What is your level of alcohol consumption? None Information not available 03/29/2023 Are you able to walk? [email or web address] Information not available 03/01/2023 Are you able to care for yourself? Yes [email or web address] Information n ot available 08/21/2024 Do you have difficulty dressing or bathing? No [email or web address] Information not available 08/21/2024 What is your exercise level? Occasional Information not available 06/21/2023 Mental Status Question Answer Note LastModified by Organization D etails LastModified Time Do you feel stressed (tense, restless, nervous, or anxious, or unable to sleep at night)? [id number] Information not available 06/21/2023 Family History Relationship [...] SNOMED-CT Code Diagnosis ICD10 Code Diagnosis Note [id number] Silvio Perez MD [place] [address] [address] 09/17/2024 11:14:44 09/17/2024 19:04:10 [id number] DAMIÁN MARTÍNEZ MD [place] [address],[place] [address] 09/17/2024 12:11:15 09/17/2024 13:51:08 Multigravida of advanced maternal age 044997748 O09.523 - continue PNV- repeat growth at 36 weeks for hx of short interval Finding of pattern of 600361454 O09.899 - repeat growth US at 36 weeks due to increased risk of FGR with short interval and AMA Gestation period, 34 weeks 74203779 Z3A.34 - continue PNV [id number] DAMIÁN MARTÍNEZ MD [place] [address],[place] [address] 10/02/2024 15:19:07 10/02/2024 16:04:53 Observational assessment 780674075 Z03.74 O41.03X0 Z3A.36 [id number] DAMIÁN MARTÍNEZ MD [place] [address],[place] [address] 10/02/2024 15:19:19 10/02/2024 16:45:34 Oligohydramnios 42872397 O41.03X0 - BELLA 5.2cm with 2x2cm pocket- encouraged hydration- repeat in 1 week Multigravi da of advanced maternal age 687774094 O09.523 - continue PNV Gestation period, 36 weeks 85696730 Z3A.36 - gbs collected [id number] DAMIÁN MARTÍNEZ MD [place] [address],[place] [address] 10/09/2024 15:33:20 10/09/2024 16:08:30 Oligohydramnios 23312046 O41.03X0 Z3A.37 - BELLA 5.2cm with 2x2cm pocket- encouraged hydration- repeat in 1 week [id number] DAMIÁN MARTÍNEZ MD [place] [address],[place] [address] 10/09/2024 15:33:32 10/09/2024 16:36:35 Swelling of lower limb 863341011 M79.89 - patient reports elevated BPs at home and leg swelling- will check labs, precaution s discussed Gestation period, 37 weeks 66484754 Z3A.37 - continue PNV- will schedule EIL Multigravi da of advanced maternal age 828301523 O09.523 - continue PNV Health Concerns Section Related Observation LastModified by Organization Detai ls LastModified Time None Recorded Concern Status LastModified by Organization Details LastModified Time None Recorded Payers Encounter Date Sequence Insurance Name Policy Number Policy Grullon Covered Member ID Grullon Member ID Guarantor Name 10/09/2024 1 [place] [employer] [facility] [employer] Fitz Ballard [id number] Lorenza Ballard OBGyn Episode Ob Episode Information Episode Created Date Number of Fetuses Patient Bloodtype Patient rh Status Prepregnancy Weight lbs Domestic Partner Domestic Partner Phone Father Name Application Helper Status 04/26/19 25 1 O Negative 172 Jemarcu s OPEN Fetus Data First Name Last Name Admitted to NICU Weight (g) Sex Living Outcome Pediatric Complications Fetus ID Race Codes Race Delivery Type [id number] Problems Problem Notes Problem Name Start Date End Date Resolution Snomed Code Not e Glucose level above reference range 08/13/2024 98639439 1 hour eleva te doing 3 hour 08/21 RhD negative 08/06/2024 845166386 025 rhogam received -induced hypertension 95286978 last - delivered at 37 weeks. Brigido [...] Date Ultra Sound Latest Days Gestation 0 [email or web address] 05/18/2024 10/26/19 25 0 Pre- Flowsheet Flowsheet Date 04/26/2024 Patel Score Blood Edema Fundus Height Fundus Units Glucose Ketones Leukocytes Nitrite Labor Signs Protein Cervic Dilation Cervic Effacement Cervic Station Type Weight in lbs Pre/Post Dialysis Refused Weight 176.680796463717 BP Diastolic BP Location Tested BP Systolic [...] Type Weight in lbs Pre/Post Dialysis Refused 177.856328931016 BP Diastolic BP Location Tested BP Systolic [...] Weight in lbs Pre/Post Dialysis Refused Weight 179.142130079302 BP Diastolic BP Location Tested BP Systolic [...] Type Weight in lbs Pre/Post Dialysis Refused 178.706534817224 BP Diastolic BP Location Tested BP Systolic BP Type 73 L arm 105 sitting Fetus Heart Rate Present A 155 Fetus Movement A Yes Comments Good movement. No cram ping or bleeding. Discussed GCT and labs with Rhogam, orders given to take to [facility] around 27 weeks. BP well controlled. No other issues. RTC 4 weeks. Flowsheet Date 08/06/2024 Patel Score Blood Edema Fundus Height Fundus Units Glucose Ketones Leukocytes Nitrite Labor Signs Protein Cervic Dilation Cervic Effacement Cervic Station 26 cm Type Weight in lbs Pre/Post Dialysis Refused Weight 179.853660205886 BP Diastolic BP Location Tested BP Systolic [...] Type Weight in lbs Pre/Post Dialysis Refused 181.171119695423 BP Diastolic BP Location Tested BP Systolic [...] Weight in lbs Pre/Post Dialysis Refused Weight 186.633550278058 BP Diastolic BP Location Tested BP Systolic [...] Weight in lbs Pre/Post Dialysis Refused Weight 186.587365352401 BP Diastolic BP Location Tested BP Systolic BP Type 84 124 Fetus Heart Rate Present A 157 Fetus Movement A Yes Comments Good movement. No cram ping or bleeding. [facility] for elevated BP last night, [...] Weight in lbs Pre/Post Dialysis Refused Weight 188.741553253023 BP Diastolic BP Location Tested BP Systolic [...]
[2024-10-10 23:51] LABS: Hematocrit 34.2 % (37.0-47.0); Hemoglobin 11.3 g/dL (12.0-15.0); Immature Granulocyte Percent A 0.6 % (0-0.5); Lymphocytes Absolute Auto 2.12 K/mm3 (0.9-3.2); Mean Corpuscular HGB Conc 33.0 g/dl (32-36); Mean Corpuscular Hemoglobin 28.0 pg (26-34); Mean Corpuscular Volume 84.9 fl (80-100); Nucleated Red Blood Cells Absolute Auto 0.000 K/mm3 (0.0-0.012); Nucleated Red Blood Cells Perc 0.0 % (0.0-0.2); Platelet Count Result 232 k/mm3 (150-375); Red Blood Count 4.03 M/mm3 (4.2-5.4); White Blood Count 9.9 K/mm3 (4.5-10.0)
[2024-10-11] VITALS (12 sets, daily range): BP systolic 126–136; BP diastolic 74–84; PULSE 95–112; O2SAT 94–100
[2024-10-11 00:01] LABS: Alanine Aminotransferase 17 U/L (6-35); Albumin Level 3.5 g/dL (3.5-5.1); Alkaline Phosphatase 147 U/L (38-126); Anion Gap 9 mmol/L (4-12); Aspartate Amino Transferase 24 U/L (14-36); Bilirubin,Total 0.3 mg/dL (0.2-1.3); Blood Urea Nitrogen 4 mg/dL (7-17); Calcium 9.2 mg/dL (8.4-10.2); Carbon Dioxide 18 mmol/L (22-30); Chloride 107 mmol/L (98-107); Estimated CRCL calculation 131 ml/min; Estimated Glomerular Filt Rate > 60; Glucose 97 mg/dL (65-110); Potassium 3.7 mmol/L (3.4-5.0); Sodium 134 mmol/L (137-145); Total Protein 6.6 g/dL (6.3-8.2); Uric Acid 3.9 mg/dL (2.5-7.5)
[2024-10-11 00:31] LABS: Add Urine Microscopic? YES; Appearance Urine Cloudy (Clear); Glucose Urine UA Negative (Negative); Leukocyte Esterase Ur 2+ LEU/UL (Negative); Need Manual Microscopic Reviewed; Nitrate Urine Negative (Negative); Non Pathogenic Casts 0-2; Specific Grav Ur 1.017 (1.001-1.035)
[2024-10-11 00:34] LABS: Total Protein Urine Random < 5 mg/dL; Ur Ttl Prot Creatinine Ratio < 0.06 mg/mg (0-0.20)
--- NOTE | 2024-10-11 00:39 | PC.NURSE ---
Called Anoop Ozuna CNM, update on pt, elevated blood pressures at home, blood pressure on the unit, headache 6 out of 10, spots in vision, nausea, labs, and tracing. Orders received to administer Fioricet and discharge pt with instructions to keep next scheduled appointment and when to return to the unit.
--- NOTE | 2024-10-11 00:44 | PC.NURSE ---
Addendum entered by Nisreen Hitchcock RN 10/11/24 01:09: Denies taking medication at this time. Original Note: Pt offered Fioricet for headache, denies at this time.
--- NOTE | 2024-10-11 00:51 | PC.NURSE ---
Pt discharged with instructions call the office tomorrow for a follow-up, keep next scheduled appointment, and when to return to the unit, pt verbalizes understanding.
== END 2024-10-11 00:51 | disposition home or self-care (01) ==
LOC: ANHOBOP 22:59 → ANHOBPP 23:01
PROVIDERS: Advanced Practice Midwife; Visit Provider Obstetrics & Gynecology
DX: O13.9 Gestational [pregnancy-induced] hypertension without significant proteinuria, unspecified trimester (principal); Z3A.00 Weeks of gestation of pregnancy not specified
CPT/HCPCS: 36415; 59025; 80053; 81001; 82570; 84156; 84550; 85025

== ENCOUNTER 2024-10-19 05:00 | Inpatient (IN) | payer MEDICAID, SELFPAY ==
[2024-10-19] VITALS (117 sets, daily range): BP systolic 117–147; BP diastolic 62–114; PULSE 32–125; RESP 18; TEMP 36.2–36.4; O2SAT 96–100; BMI 36.6
--- OUTSIDE RECORDS SUMMARY | 2024-10-19 05:06 | XMS_ITS | Data Portability ---
Author Organization [facility] Address [address] [place] [address] [address] Assessment No assessment recorded. Plan of Treatment Reminders Order Date Submit Date Provider Last Modified By Organization Details Last Modified Time Details Appointments INDUCTION 2024 05:00A Mau MARTÍNEZ MD Not available Not available Not available Lab unlisted lab - CMP/CBC/u estefany acid 2024 025 [facility] (Lab), [address], [place], [address], 10/16/2024 04:11:59 protein:c reatinine ratio, urine 2024 025 [facility] (Lab), [address], [place], [address], 10/16/2024 04:11:59 Referral None recorded. Procedures None recorded. Surgeries None recorded. Imaging non-stres s test 2024 025 [email or web address], [address], [place], [address], 10/15/2024 18:00:47 US, obstetric , biophysic al profile 2024 025 [email or web address] [address], [address], [place], [address], 10/09/2024 19:09:40 US, obstetric , follow-up 2024 025 [email or web address] [address], [place], [address], 10/02/2024 17:40:46 US, obstetric , biophysic al profile + non-stres s test 2024 025 [email or web address] [address], [address], [place], [address], 10/02/2024 17:37:46 Medication Orders None recorded. Patient TargetsNo targets recorded. Patient InstructionsNo instructions recorded. Reason for Referral None Reported. Results Created Date Observation Date Name Description Value Unit Range Abnormal Flag Note LastModifiedBy Organization Detail LastModifiedTime 10/03/1910/02/2024 CULTU RE: GROUP B STREP SCREE N, REFLE X SUSCE PTIBI LITY result report SEE RESULT S BELOW Test: Cultu re: Group B Strep , Refle x Susce ptibi lity ([facility]/ [facility] ) Speci men Sourc e: Vagin a/Rec alice Speci men Type: Vagin al/Re ctal Speci men Date: 2024 1605 Resul t Date: 2024 1402 Resul t Statu s: Final resul t Abnor mal: No Resul ting Lab: [facility] [address] [facility] [address] Tel: CULTU RE ----- ----- ----- --- No Group B strep isola daisha at 2 days (kalyani ctive broth enhan cemen t) Not Available [facility] (Lab) [address], [place], [address], 10/05/2024 15:06:27 10/10/19 25 10/09/2024 PROTE IN/CR EATIN INE RATIO , URINE creatinine, urine 182.5 mg/dL R-No refer ence range estab lishe d for this assay Not Available [facility] (Lab) [address], [place], [address], 10/10/2024 07:23:55 10/10/19 25 10/09/2024 PROTE IN/CR EATIN INE RATIO , URINE protein, urine 38 mg/dL R-No refer ence range estab lishe d for this assay Not Available [facility] (Lab) [address], [place], [address], 10/10/2024 07:23:55 10/10/19 25 10/09/2024 PROTE IN/CR EATIN INE RATIO , URINE protein/crea tinine ratio, urine 0.21 . No Refer ence Range avail able for Rando m Urine s. A prote in to creat inine ratio of >=0.1 9 is a good predi ctor of signi fican t prote inuri a. A level of <0.14 can rule out signi fican t prote inuri a. Not Available [facility] (Lab) [address], [place], [address], 10/10/2024 07:23:55 10/03/19 25 10/02/2024 US, obste tric, follo w-up No observ ation record ed. [email or web address] [address] [facility], [place], [address], 10/03/2024 17:44:54 10/03/19 25 10/02/2024 US, obste tric, follo w-up No observ ation record ed. [email or web address] [address] [address], [place], [address], 10/02/2024 17:37:36 10/03/19 25 10/02/2024 US, obstwaqas tric, bioph ysica l profi le + non-s tress test No observ ation record ed. [email or web address] [address] [facility] [address], [place], [address], 10/02/2024 17:37:47 10/10/19 25 10/09/2024 US, leon tric, bioph ysica l profi le No observ ation record ed. [email or web address] [address], [place], [address], 10/09/2024 18:11:19 10/10/19 25 10/09/2024 US, obste tric, bioph ysica l profi le No observ ation record ed. [email or web address] [address], [place], [address], 10/10/2024 12:11:27 10/16/19 25 10/15/2024 non-s tress test No observ ation record ed. [email or web address] [address], [place], [address], 10/15/2024 18:49:54 Result Notes None recorded. Problems Name Problem SNOMED Code Status Onset Date Resolution Date Notes Provider Name and Address Organization Details Recorded Time Pregnanc y 66613110 Completed 202208/22/2023 Elenita miranda, [facility] 5 17:39:07 Asthma 664139081 Completed mild intermit tent, baldemar chance PRN Fede Banda null, [facility] 4 14:13:34 Bipolar I disorder 220435462 Completed Fede miranda, [facility] 4 14:13:34 Advanced maternal age 066161026 Completed 2023 bASA Fede Jiangle null, [facility] 4 14:13:34 Advanced maternal age 521787255 Active 2023 bASA Fede Banda null, [facility] 4 14:13:34 Prophyla ctic immunoth erapy Completed 06/24/23 given Fede Banda null, [facility] 4 14:13:34 Pregnanc y 23004233 Active 2024 Elenita Castillo null, [facility] 5 17:39:07 Pregnanc y-induce d hyperten loyda 17481632 Active last pregnanc y - delivere d at 37 weeks. Silvio Perez MD [address], [place], [address], [facility] 5 17:53:38 RhD negative 991308912 Active 2024 5 rhogam received Chery miranda, [facility] 08:28:57 Glucose level above referenc e range 19361296 Active 2024 1 hour elevate doing 3 hour 08/21 Chery miranda, [facility] 5 14:07:38 Mixed anxiety and depressi ve disorder 748220695 Active 2024 Chery miranda, [facility] 5 09:29:48 Bipolar affectiv e disorder , current episode depressi on 375129387 Active 2024 Chery miranda, [facility] 5 09:30:09 Problem Notes None recorded. Procedures Surgical History Date Name Laterality Status Provider Name and Address Organization Details Recorded Time 01/19/20 23 Date of Last Pap Smear completed Dipti Tian [facility] 03/27/2024 14:26:18 04/11/19 08 control of antepartum hemorrhage completed Chery Neil [facility] 04/26/2023 10:45:01 04/11/18 94 tonsillectomy completed Yasmin Will [facility] 01/18/2023 11:33:16 Imaging Results None recorded. Procedure Notes None recorded. Medical Equipment None Reported. Allergies Allergen ID Allergen Name Allergen Category Reaction Reaction Severity Criticality Documentation Date Start Date Code Code System Note Provider Name and Address Organization Details Recorded Time 30068 pineapple extract food Not available Not available Not available 01/18/2023 31617 74 RxNorm Marisa Morris [facility] 4 13:21:18 No known drug [...] Body mass index (BMI) Body weight Systolic And Diastolic Provider Name and Address Organization Details Last Updated DateTime 10/02/2024 152.4 cm 36.3 kg/m2 56671.18 g 124/84 mm[Hg] [facility] 10/02/2024 16:11:31 Date Recorded Body height Body mass index (BMI) Body weight Systolic And Diastolic Provider Name and Address Organization Details Last Updated DateTime 10/09/2024 152.4 cm 36.7 kg/m2 51696.37 g 131/84 mm[Hg] [facility] 10/09/2024 16:14:46 Date Recorded Body height Body mass index (BMI) Body weight Body height Body mass index (BMI) Body weight Systolic And Diastolic Systolic And Diastolic Provider Name and Address Organization Details Last Updated DateTime 5 152.4 cm 37 kg/m2 74435.0 4 g 152.4 cm 37 kg/m2 92210.0 4 g 140/84 mm[Hg] 140/84 mm[Hg] AISSATOU Lara [facility] 5 17:51:08 Social History Question Answer Notes LastModified by Organizat ion Details LastModified Time Tobacco Smoking Status Never Smoker Niyahjulissa Elizondo ruben [facility] 04/26/2023 09:29:27 Are You Blind [...] Or The Highest Degree You Have Received? [id number] Information not available 03/01/2023 Are There Any [...] Has Tobacco Cessation Counseling Been Provided? No [email or web address] Information not available 04/26/2023 Have You Used IV Drugs? No Information not available 03/01/2023 Do You Have Difficulty Walking Or Climbing Stairs? No [email or web address] Information not available 08/21/2024 Sex: Unknown Functional Status Question Answer Note LastModified by Organizat ion Details LastModified Time Do you use any illicit or recreational drugs? No [email or web address] Information not available 01/18/2023 Do you or have you ever used any other forms of tobacco or nicotine? No [email or web address] Information not available 04/26/2023 What is your level of alcohol consumption? None Information not available 03/29/2023 Are you able to walk? [email or web address] Information not available 03/01/2023 Are you able to care for yourself? Yes [email or web address] Information n ot available 08/21/2024 Do you have difficulty dressing or bathing? No [email or web address] Information not available 08/21/2024 What is your exercise level? Occasional Information not available 06/21/2023 Mental Status Question Answer Note LastModified by Organization D etails LastModified Time Do you feel stressed (tense, restless, nervous, or anxious, or unable to sleep at night)? [id number] Information not available 06/21/2023 Family History Relationship [...] SNOMED-CT Code Diagnosis ICD10 Code Diagnosis Note [id number] DAMIÁN MARTÍNEZ MD [facility] [address] [address] 01/18/2023 10:49:13 01/18/2023 11:24:53 screening 295388289 Z36.87 Z3A.01 [id number] DAMIÁN MARTÍNEZ MD [facility] [address] [address] 01/18/2023 10:51:07 01/18/2023 16:21:14 test positive 320909861 Z32.01 1. Exam today within normal limits.2. Ultrasound today confirms GA and viability; EDC . GC/Clamydi a testing and pap smear done: will f/u as indicated. 4. ACOG guidelines and plan of care for reviewed with patient. All questions answered.5 . Return to office for new OB visit6. Will need new OB labs at next visit.7. Genetic screening: desires. Mild inter mittent asthma 382316183 J45.20 - rare albuterol/ nebulizer use; mostly with seasonal changes [id number] Silvio Perez MD [facility] [address] [address] 03/01/2023 13:38:51 03/01/2023 14:12:31 screening 140763804 Z36.82 Z3A.12 [id number] DAMIÁN MARTÍNEZ MD [facility] [address] [address] 03/01/2023 13:39:32 03/08/2023 13:18:00 Routine care 848791615 Z34.90 Asthma 739359248 J45.90 9 Gestation period, 12 weeks 96177878 Z3A.12 Upper resp iratory infection 40256438 J06.9 [id number] DAMIÁN MARTÍNEZ MD [facility] [address] [address] 03/29/2023 16:40:19 03/29/2023 17:26:52 Routine care 634684524 Z34.90 [id number] DAMIÁN MARTÍNEZ MD [facility] [address],[place] [address] 04/26/2023 09:28:22 04/26/2023 11:06:10 Advanced maternal age 422018978 O09.522 Gestation period, 20 weeks 88746442 Z3A.20 [id number] Silvio Perez MD [facility] [address] [address] 04/26/2023 09:29:22 04/26/2023 10:34:53 screening for malformation 628163348 Z36.3 Z3A.20 [id number] DAMIÁN MARTÍNEZ MD [facility] [address] [address] 05/24/2023 16:48:09 05/24/2023 17:16:57 Advanced maternal age 868884375 O09.522 Gestation period, 24 weeks 277407187 Z3A.24 [id number] MD Yonny HINOJOSA [address],[place] [address] 06/21/2023 10:02:44 06/21/2023 10:52:14 Advanced maternal age 688766127 O09.522 Gestation period, 28 weeks 45108358 Z3A.28 [id number] Silvio Perez MD [facility] [address],[place] [address] 06/27/2023 13:12:20 06/27/2023 14:38:29 Elevated blood-pressure reading without diagnosis of hypertension 532585250 R03.0 [id number] DAMIÁN MARTÍNEZ MD [facility] [address],[place] [address] 07/06/2023 16:45:45 07/07/2023 12:50:36 Reduced movement 046454223 O36.8199 Advanced m aternal age 531641211 O09.522 Gestation period, 31 weeks 56475303 Z3A.31 Low matern al weight gain 54897674 O26.13 Pain in pelvis 16205075 R10.2 [id number] DAMIÁN MARTÍNEZ MD [facility] [address],[place] [address] 07/06/2023 18:28:30 07/07/2023 12:52:01 90194637 Z33.1 Reduced fe carmella movement 317170157 O36.8199 Z3A.31 [id number] Silvio Perez MD [facility] [address],[place] [address] 07/20/2023 13:55:03 07/20/2023 14:40:01 Low maternal weight gain 51873357 O26.13 Z3A.33 [id number] DAMIÁN MARTÍNEZ MD [facility] [address],[place] [address] 07/20/2023 13:55:21 07/20/2023 15:19:48 Pain in pelvis 33268569 R10.2 Advanced m aternal age 820712540 O09.522 Low matern al weight gain 22354308 O26.13 Gestation period, 33 weeks 11917645 Z3A.33 [id number] DAMIÁN MARTÍNEZ MD [facility] [address],[place] [address] 08/08/2023 12:14:26 08/08/2023 12:52:22 Advanced maternal age 044983694 O09.522 Gestation period, 35 weeks 48286910 Z3A.35 [id number] DAMIÁN MARTÍNEZ MD [facility] [address],[place] [address] 08/12/2023 12:53:18 08/15/2023 06:32:24 Elevated blood-pressure reading without diagnosis of hypertension 145897246 R03.0 Dizziness 801553675 R42 Gestation period, 36 weeks 83459822 Z3A.36 [id number] DAMIÁN MARTÍNEZ MD [facility] [address],[place] [address] 08/17/2023 16:36:02 08/18/2023 06:55:20 Advanced maternal age 767682782 O09.522 - induced hypertension 99001919 O13.9 Gestation period, 37 weeks 32700771 Z3A.37 [id number] DAMIÁN MARTÍNEZ MD [facility] [address],[place] [address] 08/24/2023 12:14:39 08/25/2023 11:31:22 -induced hypertension 58222670 O13.9 - asymptomat ic aside from headaches as below- BP 140s/90s today, consistent with home readings- will start labetalol for maintenanc e antihypert ensives- BP parameters discussed with patient, warning signs reviewed Migraine 48247498 G43.90 9 - low suspicion for headache 2/2 preeclamps ia given headaches are consistent with pre-pregna ncy migraines- will trial sumatripta n Mixed anxi ety and depressive disorder 080484694 F41.8 - discussed EPDS, baby blues vs PPD- no SI/HI- continue seroquel-c ontinue to monitor closely, has made appointmen t with psychiatri st [id number] DAMIÁN MARTÍNEZ MD [facility] [address],[place] [address] 09/20/2023 10:21:40 09/20/2023 10:53:21 care 240757376 Z39.2 S/p 4 weeks ago here today for a visit.1. Patient recovering well2. Plans to continue combo feeding3. Interested in POPs for contracept ion at this time. Risks, benefits, and alternativ es reviewed with the patient4. Patient instructed to follow up in 6-12 months for well woman exam unless need arises prior Past pregn linda history of gestational hypertension 306199752 Z87.59 - asymptomat ic- stop BP meds, normotensi ve today [id number] DAMIÁN MARTÍNEZ MD [facility] [address],[place] [address] 01/03/2024 11:25:19 01/03/2024 12:08:32 Contraception care management 282576576 Z30.9 Discussed with patient risks, benefits, and [...] , patient at this time desires nuvaring. [id number] DAMIÁN MARTÍNEZ MD [facility] [address],[place] [address] 03/27/2024 13:45:34 03/27/2024 14:13:42 [id number] DAMIÁN MARTÍNEZ MD [facility] [address],[place] [address] 03/27/2024 13:45:47 03/27/2024 15:24:36 Nausea and vomiting 35741726 R11.2 - no improvemen t with zofran- will add Reglan Advanced m aternal age 760523048 O09.521 - ASA 162mg at 12 weeks Past pregn linda history of gestational hypertension 647399647 Z87.59 - asymptomat ic- normotensi ve today- discussed ASA 162mg for preeclamps ia ppx starting at 12 weeks test positive 750780249 Z32.01 1. Exam today within normal limits.2. Ultrasound today confirms GA and viability; EDC . GC/Clamydi a testing and pap smear done: will f/u as indicated. 4. ACOG guidelines and plan of care for reviewed with patient. All questions answered.5 . Return to office for new OB visit6. Will need new OB labs at next visit.7. Genetic screening: desires. [id number] Silvio Perez MD [facility] [address],[place] [address] 04/26/2024 15:51:53 04/26/2024 16:51:17 screening 998747038 Z36.82 Z3A.14 [id number] Silvio Perez MD [facility] [address],[place] [address] 04/26/2024 15:52:23 04/26/2024 18:00:53 Routine care 466780538 Z34.90 [id number] DAMIÁN MARTÍNEZ MD [facility] [address] [address] 05/18/2024 10:54:08 05/18/2024 12:43:21 Past history of gestational hypertension 383193291 Z87.59 - asymptomat ic- normotensi ve today- discussed ASA 162mg for preeclamps ia ppx starting at 12 weeks Gestation period, 17 weeks 77865162 Z3A.17 - continue PNV [id number] Silvio Perez MD [facility] [address] [address] 06/08/2024 10:45:59 06/08/2024 12:11:57 screening for malformation 663149446 Z36.3 O09.522 Z3A.20 [id number] DAMIÁN MARTÍNEZ MD [facility] [address],[place] [address] 06/18/2024 10:41:28 06/18/2024 11:17:35 Past history of gestational hypertension 622073830 Z87.59 - asymptomat ic- normotensi ve today- discussed ASA 162mg for preeclamps ia ppx starting at 12 weeks Gestation period, 21 weeks 72870785 Z3A.21 - continue PNV [id number] DAMIÁN MARTÍNEZ MD [facility] [address],[place] [address] 07/09/2024 11:23:04 07/09/2024 12:04:43 screening 400644535 Z36.89 O36.0130 Routine an tenatal care 513293924 Z34.90 - continue PNV- repeat growth at 32 weeks for hx of short interval [id number] Silvio Perez MD [facility] [address] [address] 08/06/2024 11:41:56 08/06/2024 12:06:06 Nausea 095275120 R11.0 care status 24 8298967 Z34.83 [id number] Cathleen Ozuna, [facility] [address] [address] 08/21/2024 09:16:05 08/21/2024 09:42:04 Gestation period, 30 weeks 62565662 Z3A.30 [id number] Silvio Perez MD [facility] [address] [address] 09/17/2024 11:14:44 09/17/2024 19:04:10 [id number] DAMIÁN MARTÍNEZ MD [facility] [address] [address] 09/17/2024 12:11:15 09/17/2024 13:51:08 Multigravida of advanced maternal age 187058283 O09.523 - continue PNV- repeat growth at 36 weeks for hx of short interval Finding of pattern of 545149689 O09.899 - repeat growth US at 36 weeks due to increased risk of FGR with short interval and AMA Gestation period, 34 weeks 08610948 Z3A.34 - continue PNV [id number] DAMIÁN MARTÍNEZ MD [facility] [address] [address] 10/02/2024 15:19:07 10/02/2024 16:04:53 Observational assessment 936607074 Z03.74 O41.03X0 Z3A.36 [id number] DAMIÁN MARTÍNEZ MD [facility] [address] [address] 10/02/2024 15:19:19 10/02/2024 16:45:34 Oligohydramnios 26872346 O41.03X0 - BELLA 5.2cm with 2x2cm pocket- encouraged hydration- repeat in 1 week Multigravi da of advanced maternal age 706464521 O09.523 - continue PNV Gestation period, 36 weeks 02385700 Z3A.36 - gbs collected [id number] DAMIÁN MARTÍNEZ MD [facility] [address] [address] 10/09/2024 15:33:20 10/09/2024 16:08:30 Oligohydramnios 72809127 O41.03X0 Z3A.37 - BELLA 5.2cm with 2x2cm pocket- encouraged hydration- repeat in 1 week [id number] DAMIÁN MARTÍNEZ MD [facility] [address] [address] 10/09/2024 15:33:32 10/09/2024 16:36:35 Swelling of lower limb 137401770 M79.89 - patient reports elevated BPs at home and leg swelling- will check labs, precaution s discussed Gestation period, 37 weeks 83320390 Z3A.37 - continue PNV- will schedule EIL Multigravi da of advanced maternal age 762790721 O09.523 - continue PNV [id number] MD Yonny HINOJOSA [address] [address] 10/15/2024 16:40:17 10/15/2024 17:20:27 Reduced movement 421191442 O36.8130 - NST to follow Gestation period, 38 weeks 80592709 Z3A.38 - continue pNV [id number] DAMIÁN MARTÍNEZ MD [facility] [address] [address] 10/15/2024 17:49:57 10/15/2024 18:00:47 Reduced movement 943180951 O36.8130 - NST to follow Health Concerns Section Related Observation LastModified by Organization Detai ls LastModified Time None Recorded Concern Status LastModified by Organization Details LastModified Time None Recorded Advance Directives Directive None Recorded Payers Insurance Date Sequence Insurance Name Policy Number Policy Grullon Covered Member ID Grullon Member ID Guarantor Name 10/09/2024 1 [place] [facility] Fitz Loera Ballard [id number] [facility] Episode Information Episode Created Date Number of Fetuses Patient Bloodtype Patient rh Status Prepregnancy Weight lbs Domestic Partner Domestic Partner Phone Father Name Chief Wheelage Clerk Status 01/19/20 23 1 CLOSED Fetus Data First Name Last Name Admitted to NICU Weight (g) Sex Living Outcome Pediatric Complications Fetus ID Race Codes Race Delivery Type 3345.24 1 M Full Term [id number] Vaginal Delivery Brigido Calculation Initial Brigido Date [...] Domestic Partner Domestic Partner Phone Father Name Chief Wheelage Clerk Status 04/26/19 25 1 O Negative 172 Jemarcu s OPEN Fetus Data First Name Last Name Admitted to NICU Weight (g) Sex Living Outcome Pediatric Complications Fetus ID Race Codes Race Delivery Type [id number] Problems Problem Notes Problem Name Start Date End Date Resolution Snomed Code Not e Glucose level above reference range 08/13/2024 92480738 1 hour eleva te doing 3 hour 08/21 RhD negative 08/06/2024 169280924 025 rhogam received -induced hypertension 77035450 last - delivered at 37 weeks. Brigido [...] Date Ultra Sound Latest Days Gestation 0 [email or web address] 05/18/2024 10/26/19 25 0 Pre- Flowsheet Flowsheet Date 04/26/2024 Patel Score Blood Edema Fundus Height Fundus Units Glucose Ketones Leukocytes Nitrite Labor Signs Protein Cervic Dilation Cervic Effacement Cervic Station Type Weight in lbs Pre/Post Dialysis Refused Weight 176.579328244752 BP Diastolic BP Location Tested BP Systolic [...] Type Weight in lbs Pre/Post Dialysis Refused 177.574433363381 BP Diastolic BP Location Tested BP Systolic [...] Weight in lbs Pre/Post Dialysis Refused Weight 179.507364264748 BP Diastolic BP Location Tested BP Systolic [...] Type Weight in lbs Pre/Post Dialysis Refused 178.340120209215 BP Diastolic BP Location Tested BP Systolic [...] Weight in lbs Pre/Post Dialysis Refused Weight 179.125660203172 BP Diastolic BP Location Tested BP Systolic [...] Type Weight in lbs Pre/Post Dialysis Refused 181.253273410946 BP Diastolic BP Location Tested BP Systolic [...] Weight in lbs Pre/Post Dialysis Refused Weight 186.066841888524 BP Diastolic BP Location Tested BP Systolic [...] Weight in lbs Pre/Post Dialysis Refused Weight 186.272873693444 BP Diastolic BP Location Tested BP Systolic BP Type 84 124 Fetus Heart Rate Present A 157 Fetus Movement A Yes Comments Good movement. No cram ping or bleeding. [facility], had normal [...] Weight in lbs Pre/Post Dialysis Refused Weight 188.043302637099 BP Diastolic BP Location Tested BP Systolic BP Type 84 L arm 131 sitting Fetus Heart Rate Present A Present Fetus Movement A Yes Comments Good movement. No cram ping or bleeding. Having some feet/leg swelling. Reports elevated BP at home, normal in office today. Would like to schedule EIL at 39 weeks, will plan for 10/19. BELLA normal today, 9.0 with 8 BPP. P Flowsheet Date 10/15/2024 Patel Score Blood Edema Fundus Height Fundus Units Glucose Ketones Leukocytes Nitrite Labor Signs Protein Cervic Dilation Cervic Effacement Cervic Station neg trace Type Weight in lbs Pre/Post Dialysis Refused Weight 189.298482933200 BP Diastolic BP Location Tested BP Systolic BP Type 84 L arm 140 sitting Fetus Heart Rate Present Fetus Movement Comments Some decreased movemen t. No cramping or bleeding. NST to follow to evaluate given somewhat less movement. Induction scheduled for Tuesday. Precautions discussed. Flowsheet Date 10/15/2024 Patel Score Blood Edema Fundus Height Fundus Units Glucose Ketones Leukocytes Nitrite Labor Signs Protein Cervic Dilation Cervic Effacement Cervic Station Type Weight in lbs Pre/Post Dialysis Refused Weight 189.884037221811 BP Diastolic BP Location Tested BP Systolic BP Type 84 L arm 140 sitting Fetus Heart Rate Present Fetus Movement Comments Menstrual History Last Menstrual Date Menses Monthly [...] Domestic Partner Domestic Partner Phone Father Name Chief Wheelage Clerk Status 01/19/20 23 1 CLOSED Fetus Data First Name Last Name Admitted to NICU Weight (g) Sex Living Outcome Pediatric Complications Fetus ID Race Codes Race Delivery Type 2948.34 8 F Full Term [id number] Vaginal Delivery Brigido Calculation Initial Brigido Date [...] Domestic Partner Domestic Partner Phone Father Name Chief Wheelage Clerk Status 03/01/20 23 1 O Negative 168 CLOSED Fetus Data First Name Last Name Admitted to NICU Weight (g) Sex Living Outcome Pediatric Complications Fetus ID Race Codes Race Delivery Type 2466.40 65 F true Full Term 73160 Vaginal Delivery Problems Problem Notes Problem Name Start Date End Date Resolution Snomed Code Not e Asthma 782794069 mild inter mittent, albuterol PRN Advanced maternal age 04/26/2023 [id number] bASA Bipolar I disorder 251135296 Prophylactic immunotherapy [id number] 06/24/23 given Brigido Calculation Initial Brigido Date [...] Weight in lbs Pre/Post Dialysis Refused Weight 164.20376191137 BP Diastolic BP Location Tested BP Systolic BP Type 78 124 Fetus Heart Rate Present A 161 Fetus Movement Comments Patient presents to [facility] care. has been overall uncomplicated. Reports [...] Weight in lbs Pre/Post Dialysis Refused Weight 169.363513091335 BP Diastolic BP Location Tested BP Systolic [...] Weight in lbs Pre/Post Dialysis Refused Weight 165.661829647825 BP Diastolic BP Location Tested BP Systolic [...] Weight in lbs Pre/Post Dialysis Refused Weight 168.167348423834 BP Diastolic BP Location Tested BP Systolic [...] Weight in lbs Pre/Post Dialysis Refused Weight 169.791751759829 BP Diastolic BP Location Tested BP Systolic [...] Weight in lbs Pre/Post Dialysis Refused Weight 171.359238616532 BP Diastolic BP Location Tested BP Systolic [...] Weight in lbs Pre/Post Dialysis Refused Weight 176.113525938591 BP Diastolic BP Location Tested BP Systolic [...] Weight in lbs Pre/Post Dialysis Refused Weight 174.686544828789 BP Diastolic BP Location Tested BP Systolic BP Type 78 133 Fetus Heart Rate Present A 140 Fetus Movement A Yes Comments Here for problem visit, see note. Flowsheet Date 08/17/2023 Patel Score Blood Edema Fundus Height Fundus Units Glucose Ketones Leukocytes Nitrite Labor Signs Protein Cervic Dilation Cervic Effacement Cervic Station Type Weight in lbs Pre/Post Dialysis Refused Weight 173.978027572521 BP Diastolic BP Location Tested BP Systolic BP Type 88 146 Fetus Heart Rate Present Fetus Movement A Yes Comments Baby moving well. Headaches, improved with tylenol. Some visual floaters. No chest pain or dyspnea, RUQ or epigastric pain. Meets criteria for gestational hypertension, recommend induction today. Patient to present to [facility] for [facility]. Menstrual History Last Menstrual Date Menses Monthly On Bcp Conception Prior Menses Frequency Hcg Plus Date Menarche Onset Age 0811/30/2022 Genetic Screening And Infection History Question Response Note Mental Retardation/Autism false Patient's Age Will Be 35 Years Or Older At Estim ated Date of Delivery true Thalassemia (Maori, Indonesian, Mediterranean, Or Background): MCV < 80 false Neural Tube Defect (Meningomyelocele, Spina Bifi da, Or Anencephaly) false Congenital Heart Defect false Down Syndrome false Joey-Sachs (eg, Synagogue, Cajun, St Lucian-New Zealander) f alse Krupa Disease false Sickle Cell Disease Or Trait () false Hemophilia Or Other Blood Disorders false Muscular Dystrophy false Cystic Fibrosis false Anali's Chorea false Intellectual Disability/Autism false If Yes, [...] Sterilization Discharge Date Comments 4 [facility]- id[facility] 37.1 false Cathleen Ozuna [facility] [place]; Advanced maternal age ,A sthma,Bip olar I disorder, Prophylac tic immunothe rapy Discharge Information Feeding Method Contraceptive Method Maternal HG B and HCT Levels
--- OUTSIDE RECORDS SUMMARY | 2024-10-19 05:06 | XMS_ITS | Data Portability ---
[facility] Address [address] [place] [address] Assessment No assessment recorded. Plan of Treatment Reminders Order Date Submit Date Provider Last Modified By Organization Details Last Modified Time Details Appointments None recorded. Lab pap, IG + CT/NG + reflex HPV 2013 014 [facility], [address] [place] [address], [facility] [address], [place], [address], 4 20:18:04 wet [facility] 2013 014 [facility], [address] [place] [address], [facility] [address], [place], [address], 4 20:18:04 test, urine 2013 014 [facility] Order, Internal Use Only DO Not Attach Compendium DO Not Attach Compendium, Do Not Delete/merge, [id number] 4 20:18:04 Referral None recorded. Procedures None recorded. Surgeries None recorded. Imaging None recorded. Medication Orders ibuprofen 800 mg tablet 2014 015 [id number], [address], [place], [id number], 5 11:27:58 cyclobenza lobito 10 mg tablet 2014 015 [facility], [address], [place], [id number], 5 11:27:59 Nexplanon 68 mg subdermal implant [address] [facility]32795, [address], [place], [id number], 4 20:18:10 albuterol sulfate 0.63 mg/3 mL solution for nebulizati on 2013 014 [facility]78700, [address], [place], [id number], 4 20:18:04 albuterol sulfate HFA 90 mcg/actuat ion aerosol inhaler 2013 014 [facility] #69035, [address], [place], [id number], 4 20:18:04 metronidaz ole 500 mg tablet 2013 014 [facility]18616, [address], [place], [id number], 4 20:18:04 Patient TargetsNo targets recorded. Patient InstructionsNo instructions recorded. Reason for Referral None Reported. Results Created Date Observation Date Name Description Value Unit Range Abnormal Flag Note LastModifiedBy Organization Detail LastModifiedTime 03/21/20 14 03/21/2014 pregn linda test, urine HCG negati ve Not Available In-Office Order Internal Use Only DO Not Attach Compendium DO Not Attach Compendium, Do Not Delete/merge, [id number] 03/21/2014 11:48:56 03/21/20 14 03/21/2014 [place] trichomonas exam NEGATI VE negati ve Not Available [facility] ([facility]) [address] [facility], [place], [address], 03/21/2014 12:03:22 03/21/20 14 03/21/2014 wet [place] yeast exam NEGATI VE negati ve Not Available [facility] ([facility]) [address] [facility], [place], [address], 03/21/2014 12:03:22 03/21/20 14 03/21/2014 wet mount clue cell exam CLUE CELLS SEEN. negati ve Not Available [facility] ([facility]) [address] [facility], [place], [address], 03/21/2014 12:03:22 Result Notes None recorded. Problems Name Problem SNOMED Code Status Onset Date Resolution Date Notes Provider Name and Address Organization Details Recorded Time Skin tag 208511310 Active Kadeem miranda, [place] - [facility] 5 11:27:58 Muscle strain 63233203 [place] Kadeem miranda, [place] [facility] 5 11:27:58 Asthma 690028241 Active Kadeem miranda, [facility] 4 20:18:04 Bacterial vaginosis 953445234 Active Kadeem miranda, [place] - [facility] 4 20:18:04 Pain in pelvis 94251871 [place] Kadeem [place]anda, [place] - [facility] 4 20:18:04 Depressive disorder 20357365 Active Kadeem miranda, [place] - [facility] 4 15:39:49 Problem Notes None recorded. Procedures Surgical History Date Name Laterality Status Provider Name and Address Organization Details Recorded Time 5 Cryosurgery Warts/Skin Tags completed Kadeem May [facility] 10/10/2014 11:27:59 4 Generic Procedure completed Kadeem May [facility] 03/21/2014 20:17:16 Imaging Results None recorded. [...] Heart rate Body mass index (BMI) Systolic And Diastolic Provider Name and Address Organization Details Last Updated DateTime 5 08767.0 09827 g 152.4 cm 98.4 [degF] 93 /min 29.4 kg/m2 120/76 mm[Hg] Dot Winters CMA [place] - [facility] 5 10:16:44 Date Recorded Body temperature Body height Body mass index (BMI) Heart rate Body weight Systolic And Diastolic Provider Name and Address Organization Details Last Updated DateTime 4 98.3 [degF] 152.4 cm 27.5 kg/m2 64 /min 13276.5 2417 g 124/72 mm[Hg] Ruben Leung MA [facility] 4 11:01:55 Social History None recorded. Functional Status None recorded. Mental Status None recorded. Family History Nothing Reported. Medical History No medical history recorded. Gynecological HistoryNo gynecological history recorded. Obstetrics History GPAL:G 0 P 0 0 0 0 Past Encounters Encounter ID Performer Location Encounter Start Date Encounter Closed Date Diagnosis/Indication Diagnosis SNOMED-CT Code Diagnosis ICD10 Code Diagnosis Note [id number] MD Darryn Armando [facility] ([facility]) [address] [place] [address] 03/21/2014 10:15:47 03/21/2014 20:20:10 Gynecologic examination 97351141 positive for BV - treated with metronidaz ole Asthma 256256219 refille d meds Bacterial vaginosis 114219292 Pain in pelvis 28645120 will evaluate further after results are back Uses contraception 87124261 implanon insertion [id number] MD Darryn Armando e [facility] ([facility]) [address] [place] [address] 10/10/2014 10:10:41 10/10/2014 11:29:01 Skin tag 500958823 Muscle strain 32206013 e xercises, ibuprofen, flexeril. Report in 2 weeks. Health Concerns Section Related Observation LastModified by Organization Detai ls LastModified Time None Recorded Concern Status LastModified by Organization Details LastModified Time None Recorded Advance Directives Directive None Recorded Payers Insurance Date Sequence Insurance Name Policy Number Policy Grullon Covered Member ID Grullon Member ID Guarantor Name 10/09/2014 1 [facility] - DOS PRIOR TO 2020 (MEDICAID REPLACEMENT - HMO) Lorenza Puri [id number] Lorenza Puri OBGyn Episode No OBEpisode recorded.
--- OUTSIDE RECORDS SUMMARY | 2024-10-19 05:06 | XMS_ITS | Clinical Summary ---
Author Organization [facility] Address [address] [place] [address] Care Team Providers Care Oracle Security Consultant Name Role Phone None, Physician Primary Care Provider Unavailabl e Source Comments [facility],non-owned Affiliates and Associated Physician Practices is amultiple site organization consisting of ambulatory clinics and hospital sitesin [place], [place], [place] and [place]. This disclosure is being madepursuant to the Care Everywhere program and may not contain all information available regarding this patient. Last updated 17.[employer] [facility] Allergies No known active allergies Medications * [...] on file Legal Sex Female 4:27 PM FILE CLERK Gender Identity Not on file Sexual Orientation Not on file Last Filed Vital Signs Vital Sign Reading Time Taken Comments Blood Pressure 131/75 01/09/2024 10:34 AM CDT Pulse 91 01/09/2024 10:34 AM CDT Temperature 36.3 C (97.3 F) 01/09/2024 10:34 AM CDT Respiratory Rate 16 03/11/2023 5:14 PM FILE CLERK Oxygen Saturation - - Inhaled Oxygen Concentration [...] (1 2023-2 5 season) 2023 INFLUENZA VACCINE (#1) 2024 PAP SMEAR 01/18/2026 01/18/2023, 01/18/2023 ZOSTER [...] [place] Care Teams Oracle Security Consultant Relationship Specialty Start Date End Date None, Physician [address] [place] [address] PCP - General 03/11/23
--- NOTE | 2024-10-19 05:27 | LDADM ---
This patient, Lorenza Ballard, was admitted to Labor/Delivery/Recovery 108 on 10/19/24 at 05:00. Plans for labor, pain management and were discussed with patient. Patient/family oriented to hospital policies and general routines including ID bracelet, bed and alarms, visiting hours, pain management, procedures, bathroom and other care routines, personal items, smoking policy, room service/diet and guest tray routines, infant security routines, and visiting hours. Patient/Family are encouraged to report perceived risks to care and to ask questions if they do not understand what they are told or what they should do. See OBIX for further documentation.
[2024-10-19] MEDS: LACTATED RINGERS 1,000 ML 125 ML IV CONT ×2 (06:21→09:35)
[2024-10-19] MEDS: OXYTOCIN 30 UNITS/NS 500 ML 30 UNITS/500 ML BAG IV CONT (06:21)
[2024-10-19 06:22] LABS: Hematocrit 35.6 % (37.0-47.0); Hemoglobin 11.7 g/dL (12.0-15.0); Immature Granulocyte Percent A 0.3 % (0-0.5); Lymphocytes Absolute Auto 2.57 K/mm3 (0.9-3.2); Mean Corpuscular HGB Conc 32.9 g/dl (32-36); Mean Corpuscular Hemoglobin 28.3 pg (26-34); Mean Corpuscular Volume 86.2 fl (80-100); Nucleated Red Blood Cells Absolute Auto 0.000 K/mm3 (0.0-0.012); Nucleated Red Blood Cells Perc 0.0 % (0.0-0.2); Platelet Count Result 238 k/mm3 (150-375); Red Blood Count 4.13 M/mm3 (4.2-5.4); White Blood Count 11.6 K/mm3 (4.5-10.0)
--- NOTE | 2024-10-19 06:35 | P.PNAN_ITS ---
Anes - Eval Pre Procedure Procedure: labor epidural Date/Time: 10/19/24 06:35 Surgeon: ernestina Preop Diagnosis: pain during labor Pre Op Diagnosis: IOL Patient Data Age: 39 Gender: F Height: 1.52 m Weight: 85 kg Last Vital Signs Pulse 104 H 10/19/24 06:31 BP 122/83 10/19/24 06:31 Pulse Ox 96 10/19/24 05:18 O2 Del Method Room Air 10/19/24 05:26 Allergies Allergy/AdvReac Type Severity Reaction Status Date / Time No Known Allergies Allergy Verified 10/19/24 05:23 Home Medications ?Medication ?Instructions ?Recorded ?Confirmed ?Type albuterol sulfate 2.5 mg/3 mL 2.5 mg inhalation DIRECTED 02/22/23 10/19/24 History (0.083 %) solution for nebulization quetiapine 200 mg tablet 300 mg PO HS 08/17/23 10/19/24 History vitamin with calcium 1 tablet PO DAILY 10/10/24 10/19/24 History no.72-iron 27 mg-folic acid 1 mg tablet (WesTab Plus) omeprazole magnesium 20 mg 20 mg PO ONCE 10/19/24 10/19/24 History tablet,delayed release (Prilosec OTC) Laboratory Tests 10/19/24 06:07 WBC 11.6 H K/mm3 (4.5-10.0) RBC 4.13 L M/mm3 (4.2-5.4) Hgb 11.7 L g/dL (12.0-15.0) Hct 35.6 L % (37.0-47.0) MCV 86.2 fl (80-100) MCH 28.3 pg (26-34) MCHC 32.9 g/dl (32-36) RDW 13.6 % (11.5-14.5) Plt Count 238 k/mm3 (150-375) MPV 11.0 H fl (7.4-10.4) Immature Gran % (Auto) 0.3 % (0-0.5) Neut % (Auto) 70.0 % (45.5-73.1) Lymph % (Auto) 22.2 % (18.3-44.2) Tripp % (Auto) 6.3 % (2.6-8.5) Eos % (Auto) 1.0 % (0-4.4) Baso % (Auto) 0.2 % (0.2-1.2) Lymph # (Auto) 2.57 K/mm3 (0.9-3.2) Tripp # (Auto) 0.7 H K/mm3 (0.1-0.6) Eos # (Auto) 0.1 K/mm3 (0-0.3) Baso # (Auto) 0.0 K/mm3 (0.0-0.1) Abs Immat Gran (auto) 0.04 H K/mm3 (0.00-0.031) Absolute Neuts (auto) 8.1 H K/mm3 (1.3-6.7) Absolute Nucleated RBC 0.000 K/mm3 (0.0-0.012) Nucleated RBC % 0.0 % (0.0-0.2) HIV 1&2 Ab/P24 Ag 4thGn Pending Patient hx anesthesia problems: none Family hx anesthesia problems: none Results Review: All pre-operative results and documents have been reviewed as part of the pre- operative evaluation. [facility] Past Medical History Medical History (Updated 10/19/24 @ 06:36 by Lakia Ramirez CRNA) Obesity (BMI 35.0-39.9 without comorbidity) hemorrhage Intrauterine Depression Anxiety Asthma Viral infection Family History Family History Other Unknown family medical history Social History Social History Smoking status: Never smoker Tobacco type: cigarettes Substance use: never Do You Feel Safe in your Home?: Yes Lack of Transportation: No Lack of Food: Never True Current Housing: I Have Housing Concerned About Future Housing: No Difficulty Paying Gas/Electric Bills: No Difficulty Paying for Meds: No Currently Unemployed: No Education: High School Diploma/GED Difficulty w/ Childcare or Family Care: No Spiritual care concerns: No Exam Day of Procedure 10/19/24 06:35
[2024-10-19 07:14] LABS: Syphilis IgG/IgM Antibody Non-Reactive (Nonreactive)
[2024-10-19 07:20] LABS: HIV 1/2 Ab P24 Ag Result Negative (Negative)
[2024-10-19] MEDS: fentaNYL CITRATE INJ (*CRX) 100 MCG/2 ML VIAL 50 MCG IV PUSH ×2 (08:57→09:36)
[2024-10-19] MEDS: ONDANSETRON INJ 4 MG/2 ML VIAL IV PUSH (09:01)
--- NOTE | 2024-10-19 12:12 | WPDOBADMIT ---
Obstetrics - Admit Note Admission Note: late entry: patient seen at 0830 record reviewed. No pertinent additions to the history and/or any subsequent changes in the physical findings that are not consistent with the expected course of the were found. Admit for EIL. SVE /-2, AROM of clear fluid. Pitocin per protocol Additions to the history and/or subsequent changes in the physical findings follow. None.
--- NOTE | 2024-10-19 12:13 | P.PCNOB_ITS ---
OB - Vaginal Delivery Note Procedure Delivery date: 10/19/24 Events: Gestational Hypertension Induction method: AROM and Per Pitocin Protocol Delivery monitor: External FHT and Internal Uterine Route of delivery: Episiotomy description: None Laceration Description: None Specimen: No Quantitative Blood Loss (ml): 100 Anesthesia type: Epidural Disposition: Floor Complications: No immediate complications Narrative: See H&P and notes for details on patient's admission and labor. She progressed to complete cervical dilation and at the appropriate time began pushing. With adequate expulsive efforts by the mother, the baby's head was delivered without difficulty. Nuchal cord was not present. The baby's right shoulder was anterior and delivered under the pubic symphysis without difficulty. The posterior shoul anisa and the rest of the baby delivered without difficulty. The umbilical cord was doubly clamped and cut after 60 seconds of delayed cord clamping. Care of the infant was then assumed by the nursing staff. [place] Baby Date of : 10/19/24 Time of : 11:58 Infant gender: Male Weight (pounds): 7 Weight (ounces): 1 presentation: vertex position: Left Occiput Anterior Placenta delivery description: Manual Removal (due to uterine contraction around placenta) Cord Vessel Description: 3 Vessels and Delayed Cord Clamping
[2024-10-19] MEDS: OXYTOCIN 30 UNITS/NS 500 ML 30 UNITS/500 ML BAG 125 UNITS IV CONT (12:36)
--- NOTE | 2024-10-19 15:00 | OBPPTRN ---
Patient transferred to post room #276 via wheelchair. Support person Spouse - Jemarcus- present. Oriented to unit, room, information board, rooming in, admission packet and security measures. Patient verbalizes understanding.
[2024-10-19] MEDS: IBUPROFEN 600 MG TABLET PO (19:00)
[2024-10-20] VITALS: BP 143/75; PULSE 80; RESP 18; TEMP 36.6
[2024-10-20] MEDS: ACETAMINOPHEN 325 MG TABLET 650 MG PO (03:35)
[2024-10-20 04:00] VITALS: BP 140/81; PULSE 85
[2024-10-20 06:02] LABS: Hematocrit 33.0 % (37.0-47.0); Hemoglobin 10.7 g/dL (12.0-15.0)
[2024-10-20 07:28] VITALS: BP 139/86; PULSE 94; RESP 18; TEMP 36.6; O2SAT 96
[2024-10-20] MEDS: DOCUSATE SODIUM 100 MG CAPSULE PO (09:24)
[2024-10-20] MEDS: MULTIVIT/MIN/PREN/FOL AC/IRON TABLET 1 TAB PO (09:24)
[2024-10-20] MEDS: IBUPROFEN 600 MG TABLET PO ×3 (09:24→09:30)
[2024-10-20 09:28] VITALS: PULSE 94; RESP 18; O2SAT 96
[2024-10-20 12:07] VITALS: BP 132/80; PULSE 101; RESP 16; TEMP 36.5; O2SAT 98
--- NOTE | 2024-10-20 12:26 | P.PNOB_ITS ---
OB - PN: Subj Subjective Date/time seen: 10/20/24 12:26 Patient comments: no complaints, pain well controlled, incisional pain, tolerating diet and flatus present OB - PN: Obj Data Labs 10/20/24 03:32 Labs: Laboratory Results - last 24 hr 10/20/24 03:32 Hgb 10.7 L Hct 33.0 L Blood Type O Negative Antibody Screen Negative Screen Negative Baby's Blood Type A pos Baby's KEVAN Positive Doses of RhIg Required 1 OB - PN A/P Plan day: 1 Plan: routine care Comments: No problems, routine care Time Spent With Patient Time: Total time spent is greater than 50% in coordination of care (as documented) at patient's floor/unit and/or counseling patient: Exam 2 Const: General: comfortable, no acute distress and alert Resp: Effort & Inspection: normal respiratory effort Auscultation: no crackles, no rales and no rhonchi Cardio: Rate: regular rate Heart sounds: no click, no murmurs and no rubs GI: Inspection: non-distended GI Palp: No Tenderness to palpation present (GI) Auscultation: normal bowel sounds Other: Incision - CDI Extrem: General: normal to inspection, no pedal edema and no calf tenderness
--- NOTE | 2024-10-20 12:27 | PM.OBDSVD ---
DS: Admitting Diagnosis Discharge Date 10/20/2024 Admitting Diagnosis term DS: Discharge Diagnosis Discharge Diagnosis (1) Term delivered: Code(s): O80 - Encounter for full-term uncomplicated delivery Status: Acute OB - DS: Summary OB Procedures : None OB Procedures Intrapartum: Spontaneous Vag Delivery OB Procedures: : None Peripartum Data Laceration Description: None Episiotomy description: None Time Spent with Patient Time attestation: Total time spent providing and/or coordinating discharge services: DS: Data Data Completed and Pending Labs on day of discharge: Labs from last 24 hours 10/20/24 03:32 Hgb 10.7 L Hct 33.0 L Blood Type O Negative Antibody Screen Negative Screen Negative Baby's Blood Type A pos Baby's KEVAN Positive Doses of RhIg Required 1 Discharge Plan Discharge Discharging Clinician: Silvio Perez Patient Disposition: Home Activity: pelvic rest Diet: regular Patient Instructions: Antibiotic Form Patient Language: Bengali Stand Alone Forms: General Discharge Information Follow-up/Referrals: Silvio Perez MD [Physician] - Discharge Medications: Continued albuterol sulfate 2.5 mg /3 mL (0.083 %) solution for nebulization 2.5 mg inhalation DIRECTED quetiapine 200 mg tablet 300 mg PO HS omeprazole magnesium [Prilosec OTC] 20 mg tablet,delayed release (DR/EC) 20 mg PO ONCE WesTab Plus 27 mg iron- 1 mg tablet 1 tablet PO DAILY Date of admission: 10/19/24 05:00 Primary Care Provider: UNKNOWN,DOCTOR Admitting Provider: Dallin Chappell Attending physician on admission: Dallin Chappell Condition: Stable
[2024-10-20] MEDS: RHO(D) IMMUNE GLOBULIN 300 MCG/2 ML SYRINGE IM (12:44)
[2024-10-20] MEDS: TETANUS,DIPHTHERIA,AC PERTUSSIS ADULT (0.5 ML) BOOSTRIX IM (12:45)
--- NOTE | 2024-10-20 13:35 | PC.NURSE ---
Introductions were made, then consulted with patient to assess needs related to . Mother declines having any questions or concerns regarding . Resources provided for inpatient and outpatient services with the feeding sheet and mom/baby guide. Mother voiced understanding of information and will call if there is a request for assistance.
== END 2024-10-20 16:38 | disposition home or self-care (01) | DRG 560 ==
LOC: ANHOB2 10-20 12:31 → ANHLDR 10-22 13:31 → ANHOB2 10-22 13:31
PROVIDERS: Admitting Provider Obstetrics & Gynecology; Visit Provider Obstetrics & Gynecology
DX: O13.4 Gestational [pregnancy-induced] hypertension without significant proteinuria, complicating childbirth (principal); Z37.0 Single live birth; Z3A.39 39 weeks gestation of pregnancy
CPT/HCPCS: 36415; 85014; 85018; 85025; 85461; 86593; 86703; 86850; 86900; 86901; 90384; 90715; A9270; G0432; J2405; J2590; J2790; J2795; J3010; J7120